=== PATIENT | male | born 1945 | race Caucasian/White ===

== ENCOUNTER 2023-07-27 04:28 | Inpatient (IN) | payer MEDICARE ==
[2023-07-27] VITALS (11 sets, daily range): BP systolic 136–180; BP diastolic 70–99; PULSE 55–75; RESP 14–25; TEMP 97.8–98.5
[~2023-07-27] VITALS: Ht 182.9 cm; Wt 99.8 kg
[2023-07-27] MEDS ORDERED: NITROGLYCERIN 0.4MG TABLET SL SL PRN (05:15)
[2023-07-27 05:45] LABS: BASOPHILS % 0.6 % (0.0-2.0); EOSINOPHILS % 1.8 % (0.0-5.0); HEMATOCRIT. 40.7 % (42.0-52.0); HEMOGLOBIN. 14.1 g/dL (14.0-18.0); LYMPHOCYTES % 15.6 % (20.0-50.0); MEAN CORPUSCULAR HEMOGLOBIN 31.6 pg (28.0-32.0); MEAN CORPUSCULAR HGB CONC 34.8 g/dL (31.0-37.0); MEAN CORPUSCULAR VOLUME 90.8 fL (80.0-94.0); MEAN PLATELET VOLUME 9.4 fl (7.4-10.4); MONOCYTES % 4.4 % (2.0-8.0); NEUTROPHILS % 77.6 % (40.0-76.0); PLATELET 207 x1000/uL (130-400); RED BLOOD CELL COUNT 4.48 mill/uL (4.7-6.1); RED CELL DISTRIBUTION WIDTH 13.3 % (11.6-14.6); WHITE BLOOD COUNT 7.3 x1000/uL (4.5-11.0)
[2023-07-27 05:58] LABS: CHLORIDE 104 mEq/L (98-107); INR 0.9; PARTIAL THROMBOPLASTIN TIME 26.8 sec (23.4-31.0); POTASSIUM 4.2 mEq/L (3.5-5.1); PROTHROMBIN TIME 10.3 sec (9.6-11.0); SODIUM 138 mEq/L (136-145)
[2023-07-27] MEDS: ASPIRIN 81MG TABLET PO ONE (05:58)
[2023-07-27 05:59] LABS: CARBON DIOXIDE 23 mEq/L (21-32)
[2023-07-27 06:00] LABS: CALCIUM 10.2 mg/dL (8.7-10.4)
[2023-07-27 06:04] LABS: CREATININE 1.9 mg/dL (0.6-1.3); GLUCOSE 224 mg/dL (70-105); UREA NITROGEN BLOOD 29 mg/dL (9-23)
[2023-07-27 06:27] LABS: TROPONIN I HIGH SENSITIVITY 796 ng/L (3.0-53)
[2023-07-27] MEDS: HYDRALAZINE 20MG/ML VIAL IV ONE (06:47)
[2023-07-27] MEDS ORDERED: HEPARIN 25,000 UNITS PREMIX 250 ML IV ONE (07:00)
[2023-07-27] MEDS ORDERED: HEPARIN 5000 UNITS/ML VIAL IV ONE (07:00)
[2023-07-27] MEDS ORDERED: HEPARIN 60 UNITS/KG BOLUS IV SCH (07:30)
[2023-07-27] MEDS: HEPARIN 25,000 UNITS PREMIX 250 ML IV SCH (08:08)
[2023-07-27] MEDS: HEPARIN 60 UNITS/KG BOLUS IV SCH (08:14)
[2023-07-27 08:40] LABS: TROPONIN I HIGH SENSITIVITY 2030 ng/L (3.0-53)
[2023-07-27] MEDS ORDERED: DOCUSATE SODIUM 100MG CAPSULE PO PRN (08:45)
[2023-07-27] MEDS ORDERED: IPRATROPIUM/ALBUTEROL 0.5-3(2.5)MG/3ML NEB HHN PRN (08:45)
[2023-07-27] MEDS ORDERED: GUAIFENESIN 200MG/10ML SUGAR FREE UDC PO PRN (08:45)
[2023-07-27] MEDS ORDERED: ACETAMINOPHEN 325MG TABLET PO PRN ×2 (08:45)
[2023-07-27] MEDS: METOPROLOL TARTRATE 25MG TABLET PO SCH (09:05)
[2023-07-27] MEDS: ASPIRIN 81MG EC TABLET PO SCH (09:05)
[2023-07-27] MEDS: PANTOPRAZOLE 40MG DR TABLET PO SCH (09:05)
[2023-07-27 10:31] LABS: CLARITY URINE CLOUDY (CLEAR); COLOR URINE YELLOW (YELLOW); GLUCOSE URINE NEGATIVE (NEGATIVE); KETONES URINE NEGATIVE (NEGATIVE); LEUKOCYTE ESTERASE URINE 2+ (NEGATIVE); NITRITE URINE NEGATIVE (NEGATIVE); OCCULT BLOOD URINE 1+ (NEGATIVE); PH URINE 5.5 (4.5-8.0); PROTEIN URINE 2+ (NEGATIVE); SPECIFIC GRAVITY URINE 1.017 (1.005-1.030)
[2023-07-27] MEDS ORDERED: AMIODARONE HCL 900 MG in DEXT 5% WATER 482 ML IV PRN (11:00)
[2023-07-27 11:05] LABS: SQUAMOUS EPITHELIAL CELL URINE FEW /lpf (RARE/1+)
[2023-07-27 11:06] LABS: RBC URINE 0-2 /hpf (0-2)
[2023-07-27 11:07] LABS: BACTERIA URINE 4+; WBC URINE 25-50 /hpf (0-2)
[2023-07-27] MEDS: AMIODARONE 150MG/100ML 100 ML IV NR (11:12)
[2023-07-27 11:23] LABS: *AMPHETAMINES SCREEN URINE NEGATIVE (NEGATIVE); *BARBITURATES SCREEN URINE NEGATIVE (NEGATIVE); *BENZODIAZEPINES SCREEN URINE NEGATIVE (NEGATIVE); *COCAINE SCREEN URINE NEGATIVE (NEGATIVE); METHADONE URINE SCREEN NEGATIVE (NEGATIVE)
[2023-07-27 11:24] LABS: CANNABINOID URINE SCREEN NEGATIVE (NEGATIVE); ECSTASY MDMA SCREEN URINE NEGATIVE (NEGATIVE); OPIATES URINE SCREEN NEGATIVE (NEGATIVE); PHENCYCLIDINE URINE SCREEN NEGATIVE (NEGATIVE)
[2023-07-27] MEDS: SODIUM CHLORIDE 0.9% 1,000 ML IV SCH (11:34)
[2023-07-27] MEDS: CEFTRIAXONE 1GM/50ML 50 ML IV SCH (12:33)
[2023-07-27 12:34] LABS: LACTIC ACID 2.2 mmol/L (0.4-2.0)
[2023-07-27 12:36] LABS: TROPONIN I HIGH SENSITIVITY 9422 ng/L (3.0-53)
[2023-07-27] MEDS: BLOOD SUGAR DIAGNOSTIC STRIP TEST SCH (13:05)
[2023-07-27] MEDS: INSULIN LISPRO 100 UNITS/ML SUBCUT SCH (13:34)
[2023-07-27] MEDS ORDERED: HEPARIN BOLUS PRN aPTT 30-44 IV (14:00)
[2023-07-27] MEDS ORDERED: HEPARIN BOLUS PRN aPTT <30 IV (14:00)
[2023-07-27] MEDS: AMIODARONE HCL 900 MG in DEXT 5% WATER 482 ML IV PRN (14:39)
[2023-07-27] MEDS ORDERED: NITR100C11 PO (15:11)
[2023-07-27] MEDS ORDERED: ATOR-2 PO (15:11)
[2023-07-27] MEDS ORDERED: METF-416 PO (15:11)
[2023-07-27] MEDS ORDERED: METO100T16 PO (15:11)
[2023-07-27] MEDS ORDERED: LISI20TA31 PO (15:11)
[2023-07-27] MEDS: AMLODIPINE 10MG TABLET PO SCH (15:58)
[2023-07-27 16:57] LABS: PARTIAL THROMBOPLASTIN TIME 65.8 sec (23.4-31.0); PROTHROMBIN TIME 11.2 sec (9.6-11.0)
[2023-07-27] MEDS: ONDANSETRON HCL 4MG/2ML INJ IV PRN (19:09)
[2023-07-27 20:28] LABS: POTASSIUM 5.2 mEq/L (3.5-5.1)
[2023-07-27 20:30] LABS: CALCIUM 9.8 mg/dL (8.7-10.4)
[2023-07-27 20:34] LABS: CREATININE 1.6 mg/dL (0.6-1.3)
[2023-07-27] MEDS: ATORVASTATIN CALCIUM 40MG TABLET PO SCH (21:21)
[2023-07-28] VITALS (30 sets, daily range): BP systolic 107–178; BP diastolic 55–132; PULSE 51–88; RESP 13–28; TEMP 97.9–98.2
[2023-07-28 01:00] LABS: TROPONIN I HIGH SENSITIVITY 22662 ng/L (3.0-53)
[2023-07-28 06:26] LABS: BASOPHILS % 0.5 % (0.0-2.0); EOSINOPHILS % 0.7 % (0.0-5.0); HEMATOCRIT. 41.6 % (42.0-52.0); HEMOGLOBIN. 13.9 g/dL (14.0-18.0); LYMPHOCYTES % 14.1 % (20.0-50.0); MEAN CORPUSCULAR HEMOGLOBIN 31.4 pg (28.0-32.0); MEAN CORPUSCULAR HGB CONC 33.4 g/dL (31.0-37.0); MEAN CORPUSCULAR VOLUME 93.9 fL (80.0-94.0); MEAN PLATELET VOLUME 9.4 fl (7.4-10.4); MONOCYTES % 7.4 % (2.0-8.0); NEUTROPHILS % 77.3 % (40.0-76.0); PLATELET 190 x1000/uL (130-400); RED BLOOD CELL COUNT 4.44 mill/uL (4.7-6.1); RED CELL DISTRIBUTION WIDTH 13.3 % (11.6-14.6); WHITE BLOOD COUNT 10.1 x1000/uL (4.5-11.0)
[2023-07-28 06:32] LABS: POTASSIUM 5.1 mEq/L (3.5-5.1)
[2023-07-28 06:33] LABS: CALCIUM 9.8 mg/dL (8.7-10.4)
[2023-07-28 06:38] LABS: CREATININE 1.6 mg/dL (0.6-1.3)
[2023-07-28 06:40] LABS: T4 FREE 1.25 ng/dL (0.89-1.76)
[2023-07-28 06:41] LABS: THYROID STIMULATING HORMONE 0.91 uIU/mL (0.55-4.78)
[2023-07-28] MEDS: CLONIDINE 0.1MG TABLET PO PRN (07:29)
[2023-07-28] MEDS ORDERED: DIPHENHYDRAMINE 50MG/ML VIAL ONE (08:06)
[2023-07-28] MEDS ORDERED: VERAPAMIL HCL 2.5 MG/1 ML 2ML VIAL IV ONE (08:06)
[2023-07-28] MEDS ORDERED: HEPARIN 1000 UNITS/ML 10ML ONE (08:06)
[2023-07-28] MEDS ORDERED: IODIXANOL 320MG/ML 100 ML BOTTLE IV ONE (08:06)
[2023-07-28] MEDS ORDERED: LIDOCAINE HCL 1% 20ML VIAL (Pyxis) INJ ONE (08:07)
[2023-07-28 08:23] LABS: TROPONIN I HIGH SENSITIVITY 17664 ng/L (3.0-53)
[2023-07-28] MEDS ORDERED: FENTANYL CITRATE/PF 50MCG/ML 2ML VIAL ONE (08:58)
[2023-07-28] MEDS ORDERED: MIDAZOLAM HCL 2 MG/2 ML VIAL ONE (08:59)
[2023-07-28] MEDS ORDERED: ACETAMINOPHEN 325MG TABLET PO PRN (10:15)
[2023-07-28] MEDS ORDERED: ATROPINE SULFATE 1MG/10ML SYR IV PRN (11:00)
[2023-07-28] MEDS: CEFTRIAXONE 1GM/50ML 50 ML IV SCH (11:27)
[2023-07-28 14:09] LABS: TROPONIN I HIGH SENSITIVITY 13059 ng/L (3.0-53)
[2023-07-28] MEDS: PNEUMOC 13-VAL CONJ-DIP CRM/PF 0.5 ML DISP.SYRIN IM ONE (18:05)
[2023-07-29] VITALS (49 sets, daily range): BP systolic 92–171; BP diastolic 54–124; PULSE 48–84; RESP 10–31; TEMP 97.7–99.2
[2023-07-29 07:13] LABS: BASOPHILS % 0.4 % (0.0-2.0); EOSINOPHILS % 1.3 % (0.0-5.0); HEMATOCRIT. 35.5 % (42.0-52.0); LYMPHOCYTES % 17.9 % (20.0-50.0); MEAN CORPUSCULAR HEMOGLOBIN 31.5 pg (28.0-32.0); MEAN CORPUSCULAR VOLUME 92.7 fL (80.0-94.0); MONOCYTES % 10.8 % (2.0-8.0); NEUTROPHILS % 69.6 % (40.0-76.0); PLATELET 150 x1000/uL (130-400); RED BLOOD CELL COUNT 3.83 mill/uL (4.7-6.1); RED CELL DISTRIBUTION WIDTH 13.4 % (11.6-14.6); WHITE BLOOD COUNT 7.4 x1000/uL (4.5-11.0)
[2023-07-29 07:21] LABS: CHLORIDE 106 mEq/L (98-107); SODIUM 139 mEq/L (136-145)
[2023-07-29 07:22] LABS: CALCIUM 8.6 mg/dL (8.7-10.4); CARBON DIOXIDE 27 mEq/L (21-32)
[2023-07-29 07:27] LABS: CREATININE 1.6 mg/dL (0.6-1.3); GLUCOSE 132 mg/dL (70-105); UREA NITROGEN BLOOD 18 mg/dL (9-23)
[2023-07-29 07:29] LABS: CREATINE KINASE 142 IU/L (46-171); PHOSPHORUS 3.3 mg/dL (2.5-4.9)
[2023-07-29] MEDS: MAGNESIUM 2 G PREMIX 50 ML IV NR (20:15)
[2023-07-29] MEDS: AMIODARONE HCL 200 MG TABLET PO SCH (21:01)
[2023-07-30] VITALS (36 sets, daily range): BP systolic 112–192; BP diastolic 57–124; PULSE 46–72; RESP 7–28; TEMP 97.7
[2023-07-30 06:51] LABS: BASOPHILS % 0.3 % (0.0-2.0); EOSINOPHILS % 3.9 % (0.0-5.0); HEMATOCRIT 36.6 % (42.0-52.0); HEMATOCRIT. 36.6 % (42.0-52.0); HEMOGLOBIN 12.4 g/dL (14.0-18.0); HEMOGLOBIN. 12.4 g/dL (14.0-18.0); LYMPHOCYTES % 9.8 % (20.0-50.0); MEAN CORPUSCULAR HEMOGLOBIN 31.1 pg (28.0-32.0); MEAN CORPUSCULAR HGB CONC 33.7 g/dL (31.0-37.0); MEAN CORPUSCULAR VOLUME 92.3 fL (80.0-94.0); MEAN PLATELET VOLUME 9.7 fl (7.4-10.4); MONOCYTES % 7.3 % (2.0-8.0); NEUTROPHILS % 78.7 % (40.0-76.0); PLATELET 157 x1000/uL (130-400); RED BLOOD CELL COUNT 3.97 mill/uL (4.7-6.1); RED CELL DISTRIBUTION WIDTH 13.2 % (11.6-14.6); WHITE BLOOD COUNT 6.2 x1000/uL (4.5-11.0)
[2023-07-30 06:59] LABS: CHLORIDE 108 mEq/L (98-107); POTASSIUM 3.9 mEq/L (3.5-5.1); SODIUM 140 mEq/L (136-145)
[2023-07-30 07:00] LABS: CALCIUM 8.8 mg/dL (8.7-10.4); CARBON DIOXIDE 25 mEq/L (21-32)
[2023-07-30 07:05] LABS: CREATININE 1.4 mg/dL (0.6-1.3); GLUCOSE 153 mg/dL (70-105); UREA NITROGEN BLOOD 16 mg/dL (9-23)
[2023-07-30 07:07] LABS: PHOSPHORUS 2.7 mg/dL (2.5-4.9)
[2023-07-30] MEDS: AMLODIPINE 10MG TABLET PO SCH (22:01)
[2023-07-31] VITALS: BP 146/87; PULSE 70; RESP 20; TEMP 97.5
[2023-07-31] MEDS: MAGNESIUM/ALUMINUM HYDROXIDE/SIMETHICONE 30ML UDC PO PRN (00:10)
[2023-07-31 04:00] VITALS: BP 130/65; PULSE 54; RESP 19; TEMP 97.6
[2023-07-31 07:09] LABS: BASOPHILS % 0.6 % (0.0-2.0); EOSINOPHILS % 10.7 % (0.0-5.0); HEMATOCRIT 37.5 % (42.0-52.0); HEMATOCRIT. 37.5 % (42.0-52.0); LYMPHOCYTES % 13.2 % (20.0-50.0); MEAN CORPUSCULAR HEMOGLOBIN 31.2 pg (28.0-32.0); MEAN CORPUSCULAR HGB CONC 34.6 g/dL (31.0-37.0); MEAN CORPUSCULAR VOLUME 90.1 fL (80.0-94.0); MEAN PLATELET VOLUME 9.7 fl (7.4-10.4); MONOCYTES % 7.3 % (2.0-8.0); NEUTROPHILS % 68.2 % (40.0-76.0); PLATELET 195 x1000/uL (130-400); RED BLOOD CELL COUNT 4.17 mill/uL (4.7-6.1); RED CELL DISTRIBUTION WIDTH 13.1 % (11.6-14.6); WHITE BLOOD COUNT 6.6 x1000/uL (4.5-11.0)
[2023-07-31 07:15] LABS: CHLORIDE 106 mEq/L (98-107); POTASSIUM 3.5 mEq/L (3.5-5.1); SODIUM 140 mEq/L (136-145)
[2023-07-31 07:17] LABS: CALCIUM 9.2 mg/dL (8.7-10.4)
[2023-07-31 07:20] LABS: CREATININE 1.4 mg/dL (0.6-1.3)
[2023-07-31 07:21] LABS: GLUCOSE 145 mg/dL (70-105)
[2023-07-31 07:22] LABS: UREA NITROGEN BLOOD 18 mg/dL (9-23)
[2023-07-31 07:24] LABS: PHOSPHORUS 2.3 mg/dL (2.5-4.9)
[2023-07-31 07:28] LABS: CARBON DIOXIDE 24 mEq/L (21-32)
[2023-07-31 08:00] VITALS: BP 138/95; PULSE 78; RESP 21; TEMP 98.2
[2023-07-31 12:00] VITALS: BP 138/71; PULSE 64; RESP 19; TEMP 98.9
[2023-07-31 16:00] VITALS: BP 140/57; PULSE 67; RESP 19; TEMP 97.9
[2023-07-31 20:00] VITALS: BP 175/92; PULSE 68; RESP 19; TEMP 97.9
[2023-08-01] VITALS: BP 113/65; PULSE 47; RESP 15; TEMP 98
[2023-08-01 04:00] VITALS: BP 134/73; PULSE 58; RESP 20; TEMP 98.1
[2023-08-01 06:50] LABS: HEMATOCRIT. 37.2 % (42.0-52.0); MEAN CORPUSCULAR HEMOGLOBIN 31.5 pg (28.0-32.0); MEAN CORPUSCULAR HGB CONC 34.9 g/dL (31.0-37.0); MEAN CORPUSCULAR VOLUME 90.4 fL (80.0-94.0); MEAN PLATELET VOLUME 8.9 fl (7.4-10.4); PLATELET 229 x1000/uL (130-400); RED BLOOD CELL COUNT 4.12 mill/uL (4.7-6.1); RED CELL DISTRIBUTION WIDTH 13.2 % (11.6-14.6); WHITE BLOOD COUNT 7.4 x1000/uL (4.5-11.0)
[2023-08-01 06:56] LABS: DIFFERENTIAL COMMENT 1
[2023-08-01 07:10] LABS: CARBON DIOXIDE 26 mEq/L (21-32); CHLORIDE 106 mEq/L (98-107); POTASSIUM 3.2 mEq/L (3.5-5.1); SODIUM 141 mEq/L (136-145)
[2023-08-01 07:11] LABS: CALCIUM 9.2 mg/dL (8.7-10.4)
[2023-08-01 07:15] LABS: CREATININE 1.4 mg/dL (0.6-1.3)
[2023-08-01 07:16] LABS: GLUCOSE 135 mg/dL (70-105); UREA NITROGEN BLOOD 18 mg/dL (9-23)
[2023-08-01 07:18] LABS: PHOSPHORUS 2.8 mg/dL (2.5-4.9)
[2023-08-01 08:00] VITALS: BP 149/76; PULSE 69; RESP 13; TEMP 97.4
[2023-08-01] MEDS ORDERED: POTASSIUM CHLORIDE 40 MEQ in DEXT 5% WATER 230 ML IV ONE (08:00)
[2023-08-01] MEDS: FAMOTIDINE 20MG TABLET PO SCH (09:13)
[2023-08-01] MEDS: POTASSIUM CHLORIDE 20MEQ/PACKET PO SCH (09:13)
[2023-08-01] MEDS: MAGNESIUM 2 G PREMIX 50 ML IV ONE (09:33)
[2023-08-01] MEDS ORDERED: NITROGLYCERIN 0.4MG TABLET SL SL PRN (10:00)
[2023-08-01] MEDS ORDERED: ALPRAZOLAM 0.25 MG TABLET PO PRN (10:00)
[2023-08-01] MEDS: KCL 20MEQ/100ML X 2 FOR TOTAL KCL 40MEQ/200ML IV SCH (10:55)
[2023-08-01 11:51] LABS: CLARITY URINE CLEAR (CLEAR); COLOR URINE YELLOW (YELLOW); GLUCOSE URINE 1+ (NEGATIVE); KETONES URINE NEGATIVE (NEGATIVE); LEUKOCYTE ESTERASE URINE NEGATIVE (NEGATIVE); NITRITE URINE NEGATIVE (NEGATIVE); OCCULT BLOOD URINE 3+ (NEGATIVE); PH URINE 5.5 (4.5-8.0); PROTEIN URINE 2+ (NEGATIVE); SPECIFIC GRAVITY URINE 1.012 (1.005-1.030); UROBILINOGEN URINE 0.2 E.U./dL (0.2-1.0)
[2023-08-01 12:00] VITALS: BP 135/102; PULSE 57; RESP 13; TEMP 97.6
[2023-08-01 12:01] LABS: BACTERIA URINE NONE SEEN; RBC URINE 50-100 /hpf (0-2); SQUAMOUS EPITHELIAL CELL URINE RARE /lpf (RARE/1+); WBC URINE 0-2 /hpf (0-2); YEAST URINE NONE SEEN
[2023-08-01 12:51] LABS: PLATELET ESTIMATE NORMAL
[2023-08-01] MEDS: POTASSIUM CHLORIDE 20MEQ/PACKET PO ONE (13:33)
[2023-08-01] MEDS: SODIUM CHLORIDE 0.9% INJ 3ML FLUSH IVF SCH (13:34)
[2023-08-01 16:00] VITALS: BP 141/66; PULSE 69; RESP 16; TEMP 98.2
[2023-08-01 20:00] VITALS: BP 149/66; PULSE 75; RESP 19; TEMP 97.6
[2023-08-01 20:35] LABS: POTASSIUM 4.5 mEq/L (3.5-5.1)
[2023-08-01 20:37] LABS: CALCIUM 9.1 mg/dL (8.7-10.4)
[2023-08-01 20:41] LABS: CREATININE 1.4 mg/dL (0.6-1.3)
[2023-08-01] MEDS ORDERED: BISACODYL 10MG SUPP PR PRN (21:00)
[2023-08-01] MEDS: ASCORBIC ACID 500 MG TABLET PO SCH (21:29)
[2023-08-01] MEDS: ALLOPURINOL 300 MG TABLET PO SCH (21:29)
[2023-08-01] MEDS: DOCUSATE SODIUM 100MG CAPSULE PO SCH (21:29)
[2023-08-01] MEDS: CHLORHEXIDINE GLUCONATE 4% EXTERNAL USE TOP SCH (21:31)
[2023-08-01] MEDS: ACETAMINOPHEN 325MG TABLET PO PRN (23:22)
[2023-08-02] VITALS (37 sets, daily range): BP systolic 87–145; BP diastolic 36–80; PULSE 58–124; RESP 9–30; TEMP 97.5–98.6
[2023-08-02] MEDS ORDERED: CEFAZOLIN 2GM/100ML 100 ML IV NR (05:00)
[2023-08-02] MEDS ORDERED: DEL NIDO CARDIOPLEGIA 1,000 ML (CHMC) IV NR ×2 (05:00)
[2023-08-02] MEDS ORDERED: NOREPINEPHRINE 8MG/250ML PMX 250 ML IV PRN (05:00)
[2023-08-02] MEDS ORDERED: PAPAVERINE HCL 180MG in SODIUM CHLORIDE 0.9% 24ML IV PRN (05:00)
[2023-08-02] MEDS ORDERED: DOBUTAMINE 250 MG/250 ML PREMIX IV PRN (05:00)
[2023-08-02] MEDS ORDERED: DOPAMINE 400MG/250ML PREMIX 250 ML IV PRN (05:00)
[2023-08-02] MEDS ORDERED: INSULIN REGULAR (DRIP) 100 UNITS in SODIUM CHLORIDE 0.9% 99 ML IV PRN (05:00)
[2023-08-02] MEDS ORDERED: NICARDIPINE 40MG/200ML PREMIX 200 ML IV PRN (05:00)
[2023-08-02] MEDS ORDERED: EPINEPHRINE 5 MG in DEXT 5% WATER 250 ML IV PRN (05:00)
[2023-08-02] MEDS ORDERED: NITROGLYCERIN 50MG PREMIX 250 ML IV ONE (05:30)
[2023-08-02] MEDS ORDERED: HEPARIN 1000 UNITS/ML 10ML ONE ×3 (05:30→09:26)
[2023-08-02] MEDS ORDERED: SEVOFLURANE 250 ML LIQUID INH ONE (05:30)
[2023-08-02] MEDS ORDERED: ACETAMINOPHEN 500MG TABLET ONE (05:30)
[2023-08-02] MEDS ORDERED: THROMBIN (BOVINE) 5000 UNITS/VIAL TOP ONE (05:32)
[2023-08-02] MEDS ORDERED: SKIN ADHESIVE 0.7 GM EA TOP ONE (05:32)
[2023-08-02] MEDS ORDERED: POLYMYXIN B SULFATE 500000 UNITS/VIAL ONE (05:32)
[2023-08-02 05:46] LABS: DIFFERENTIAL COMMENT 1; HEMATOCRIT. 36.4 % (42.0-52.0); HEMOGLOBIN. 12.4 g/dL (14.0-18.0); MEAN CORPUSCULAR HEMOGLOBIN 30.9 pg (28.0-32.0); MEAN CORPUSCULAR HGB CONC 34.1 g/dL (31.0-37.0); MEAN CORPUSCULAR VOLUME 90.5 fL (80.0-94.0); MEAN PLATELET VOLUME 8.3 fl (7.4-10.4); PLATELET 238 x1000/uL (130-400); RED BLOOD CELL COUNT 4.02 mill/uL (4.7-6.1); RED CELL DISTRIBUTION WIDTH 13.5 % (11.6-14.6); WHITE BLOOD COUNT 6.8 x1000/uL (4.5-11.0)
[2023-08-02 05:49] LABS: CHLORIDE 108 mEq/L (98-107); POTASSIUM 4.4 mEq/L (3.5-5.1); SODIUM 141 mEq/L (136-145)
[2023-08-02 05:52] LABS: CALCIUM 9.3 mg/dL (8.7-10.4); CARBON DIOXIDE 25 mEq/L (21-32); PROTHROMBIN TIME 10.7 sec (9.6-11.0)
[2023-08-02 05:57] LABS: CREATININE 1.3 mg/dL (0.6-1.3); GLUCOSE 142 mg/dL (70-105); UREA NITROGEN BLOOD 14 mg/dL (9-23)
[2023-08-02 05:59] LABS: ALANINE AMINOTRANSFERASE 17 IU/L (10-49); ALBUMIN 3.8 g/dL (3.2-4.8); ASPARTATE AMINOTRANSFERASE 21 IU/L (<34); BILIRUBIN DIRECT 0.2 mg/dL (<=3.0)
[2023-08-02 06:00] LABS: BILIRUBIN TOTAL 0.7 mg/dL (0.1-1.0); PHOSPHORUS 2.6 mg/dL (2.5-4.9); PROTEIN TOTAL 5.9 g/dL (6.0-8.3)
[2023-08-02] MEDS: CHLORHEXIDINE GLUCONATE 4% EXTERNAL USE TOP SCH (07:08)
[2023-08-02] MEDS ORDERED: ETOMIDATE 2MG/ML 10ML VIAL IV ONE (07:12)
[2023-08-02] MEDS ORDERED: ONDANSETRON HCL 4MG/2ML INJ ONE (07:12)
[2023-08-02] MEDS ORDERED: VECURONIUM BROMIDE 10 MG/VIAL IV ONE ×4 (07:12→12:29)
[2023-08-02] MEDS ORDERED: AMINOCAPROIC ACID 250 MG/ML 20ML VIAL ONE (07:12)
[2023-08-02] MEDS ORDERED: LIDOCAINE HCL 2% 5ML SYRINGE IV ONE (07:12)
[2023-08-02] MEDS ORDERED: PROPOFOL 200MG/20ML VIAL IV ONE (07:13)
[2023-08-02] MEDS ORDERED: ESMOLOL HCL 10MG/ML 10ML VIAL IV ONE (07:15)
[2023-08-02] MEDS ORDERED: FENTANYL CITRATE/PF 50MCG/ML 5ML VIAL ONE (07:19)
[2023-08-02] MEDS ORDERED: LIDOCAINE HCL/EPINEPHRINE 1%-EPI 1:100,000 20 ML VIAL ONE (08:26)
[2023-08-02] MEDS ORDERED: MAGNESIUM SULFATE 5GM/10ML VIAL IV ONE (08:26)
[2023-08-02 08:57] LABS: PLATELET ESTIMATE NORMAL
[2023-08-02] MEDS ORDERED: POTASSIUM CHLORIDE 10MEQ IN WATER 50ML PREMIX IV ONE (09:00)
[2023-08-02] MEDS ORDERED: ALBUMIN HUMAN 25GM/100ML (25%) IV ONE (09:00)
[2023-08-02] MEDS ORDERED: [UNRECOGNIZED DRUG - OTHER] IV ONE (09:00)
[2023-08-02] MEDS ORDERED: MAGNESIUM SULFATE 3 GM in DEXT 5% WATER 100 ML IV PRN ×2 (10:45→15:45)
[2023-08-02] MEDS ORDERED: KCL 10MEQ/50ML PREMIX 150 ML IV PRN (10:45)
[2023-08-02] MEDS ORDERED: MAGNESIUM 2 G PREMIX 50 ML IV PRN ×2 (10:45→15:45)
[2023-08-02] MEDS ORDERED: MAGNESIUM 1 G PREMIX 100 ML IV PRN (10:45)
[2023-08-02] MEDS ORDERED: ESMOLOL 2500MG PREMIX 0 ML IV ONE (11:32)
[2023-08-02] MEDS ORDERED: CEFAZOLIN SODIUM 1000MG/VIAL ONE ×4 (12:30→12:31)
[2023-08-02] MEDS ORDERED: DEXMEDETOMIDINE 400 MCG/100 ML 100 ML IV ONE (12:33)
[2023-08-02] MEDS ORDERED: ALBUMIN HUMAN 12.5G/250ML (5%) IV ONE (12:33)
[2023-08-02] MEDS ORDERED: PROTAMINE SULFATE 10MG/ML VIAL 5ML IV ONE (13:45)
[2023-08-02] MEDS ORDERED: CALCIUM CHLORIDE 1GM/10ML SYR IV ONE (13:56)
[2023-08-02] MEDS ORDERED: PROPOFOL 10MG/ML 100ML 100 ML IV ONE ×2 (14:14)
[2023-08-02] MEDS: BLOOD SUGAR DIAGNOSTIC STRIP TEST SCH (15:00)
[2023-08-02] MEDS ORDERED: SODIUM CHLORIDE 0.9% 500 ML IV PRN (15:45)
[2023-08-02] MEDS ORDERED: NITROGLYCERIN 50MG PREMIX 250 ML IV PRN (15:45)
[2023-08-02] MEDS ORDERED: ACETAMINOPHEN 325MG TABLET PO PRN (15:45)
[2023-08-02] MEDS ORDERED: OXYCODONE HCL/ACETAMINOPHEN 5/325MG TABLET PO PRN (15:45)
[2023-08-02 15:54] LABS: BG CARBOXYHEMOGLOBIN 0.3 % (0.5-1.5); BG DEOXYHEMOGLOBIN 5.2 % (0.0-5.0); BG FRACTION INSPIRED OXYGEN 100; BG HCO3 ACT 25.6 mmol/L (22.0-26.0); BG METHEMOGLOBIN 0.2 % (0.0-1.5); BG OXYGEN SATURATION 94.8 % (92.0-98.5); BG OXYHEMOGLOBIN 94.3 % (94.0-97.0); BG PCO2 36.8 mmHg (35.0-45.0); BG PO2 74.8 mmHg (75.0-100.0); BG SAMPLE SITE ALINE; BG TOTAL HEMOGLOBIN 13.8 g/dL (12.0-18.0); BG VENT MODE VENT - AC
[2023-08-02 15:55] LABS: BASOPHILS % 0.4 % (0.0-2.0); EOSINOPHILS % 4.5 % (0.0-5.0); HEMOGLOBIN. 10.3 g/dL (14.0-18.0); LYMPHOCYTES % 12.6 % (20.0-50.0); MEAN CORPUSCULAR HEMOGLOBIN 30.9 pg (28.0-32.0); MEAN CORPUSCULAR HGB CONC 34.3 g/dL (31.0-37.0); MEAN CORPUSCULAR VOLUME 90.2 fL (80.0-94.0); MEAN PLATELET VOLUME 8.3 fl (7.4-10.4); NEUTROPHILS % 74.5 % (40.0-76.0); PLATELET 178 x1000/uL (130-400); RED BLOOD CELL COUNT 3.32 mill/uL (4.7-6.1); WHITE BLOOD COUNT 13.4 x1000/uL (4.5-11.0)
[2023-08-02 15:59] LABS: CHLORIDE 108 mEq/L (98-107); SODIUM 144 mEq/L (136-145)
[2023-08-02 16:00] LABS: CARBON DIOXIDE 27 mEq/L (21-32)
[2023-08-02] MEDS: AMINOCAPROIC ACID 5,000 MG in SODIUM CHLORIDE 0.9% 250 ML IV PRN (16:00)
[2023-08-02 16:01] LABS: CALCIUM 8.3 mg/dL (8.7-10.4)
[2023-08-02 16:05] LABS: CREATININE 1.3 mg/dL (0.6-1.3); GLUCOSE 150 mg/dL (70-105)
[2023-08-02 16:06] LABS: UREA NITROGEN BLOOD 15 mg/dL (9-23)
[2023-08-02 16:07] LABS: ALANINE AMINOTRANSFERASE 15 IU/L (10-49); ALBUMIN 2.9 g/dL (3.2-4.8); ASPARTATE AMINOTRANSFERASE 34 IU/L (<34)
[2023-08-02 16:08] LABS: BILIRUBIN TOTAL 0.5 mg/dL (0.1-1.0); INR 1.1; PARTIAL THROMBOPLASTIN TIME 28.2 sec (23.4-31.0); PHOSPHORUS 2.6 mg/dL (2.5-4.9); PROTEIN TOTAL 4.4 g/dL (6.0-8.3); PROTHROMBIN TIME 11.9 sec (9.6-11.0)
[2023-08-02] MEDS: DEXT 5%/0.45% NACL 1000ML 1,000 ML IV SCH (16:12)
[2023-08-02] MEDS: ALBUMIN HUMAN 12.5G/250ML (5%) IV PRN (16:12)
[2023-08-02] MEDS: DOPAMINE 400MG/250ML PREMIX 250 ML IV PRN (16:14)
[2023-08-02] MEDS ORDERED: NALOXONE HCL 0.4MG/ML VIAL IV PRN (16:15)
[2023-08-02 16:48] LABS: BG BASE EXCESS 1.3 mmol/L (-2.0-2.0); BG CARBOXYHEMOGLOBIN 0.3 % (0.5-1.5); BG DEOXYHEMOGLOBIN 3.3 % (0.0-5.0); BG FRACTION INSPIRED OXYGEN 100; BG HCO3 ACT 24.3 mmol/L (22.0-26.0); BG METHEMOGLOBIN 0.1 % (0.0-1.5); BG OXYGEN SATURATION 96.7 % (92.0-98.5); BG OXYHEMOGLOBIN 96.3 % (94.0-97.0); BG PCO2 33.2 mmHg (35.0-45.0); BG PH 7.482 (7.350-7.450); BG PO2 92.3 mmHg (75.0-100.0); BG SAMPLE SITE ALINE; BG TOTAL HEMOGLOBIN 11.9 g/dL (12.0-18.0); BG VENT MODE VENT - AC
[2023-08-02] MEDS: ALBUMIN HUMAN 12.5G/250ML (5%) IV NR ×2 (16:49→23:27)
[2023-08-02] MEDS ORDERED: CALCIUM GLUCONATE 100MG/ML 10ML VIAL IV ONE (17:00)
[2023-08-02] MEDS: MAGNESIUM HYDROXIDE 400MG/5ML 30ML UDC PO SCH (17:06)
[2023-08-02] MEDS: CALCIUM GLUCONATE IV NR (17:19)
[2023-08-02] MEDS: WATER IV NR (17:19)
[2023-08-02] MEDS: DEXT 5% IV NR (17:19)
[2023-08-02] MEDS: KCL 10MEQ/50ML PREMIX 100 ML IV PRN (17:46)
[2023-08-02] MEDS: CEFAZOLIN 1000MG PREMIX 50 ML IV SCH (17:46)
[2023-08-02] MEDS: INSULIN REGULAR (DRIP) 100 UNITS in SODIUM CHLORIDE 0.9% 99 ML IV SCH (17:46)
[2023-08-02 18:09] LABS: BG BASE EXCESS 2.4 mmol/L (-2.0-2.0); BG CARBOXYHEMOGLOBIN 0.3 % (0.5-1.5); BG DEOXYHEMOGLOBIN 3.3 % (0.0-5.0); BG FRACTION INSPIRED OXYGEN 90; BG HCO3 ACT 25.7 mmol/L (22.0-26.0); BG METHEMOGLOBIN 0.1 % (0.0-1.5); BG OXYGEN SATURATION 96.7 % (92.0-98.5); BG OXYHEMOGLOBIN 96.3 % (94.0-97.0); BG PCO2 35.1 mmHg (35.0-45.0); BG PH 7.482 (7.350-7.450); BG PO2 93.1 mmHg (75.0-100.0); BG SAMPLE SITE RIGHT RADIAL; BG TOTAL HEMOGLOBIN 12.3 g/dL (12.0-18.0); BG VENT MODE VENT - AC
[2023-08-02 18:48] LABS: BG BASE EXCESS 1.3 mmol/L (-2.0-2.0); BG CARBOXYHEMOGLOBIN 0.2 % (0.5-1.5); BG DEOXYHEMOGLOBIN 3.1 % (0.0-5.0); BG FRACTION INSPIRED OXYGEN 80; BG HCO3 ACT 24.5 mmol/L (22.0-26.0); BG METHEMOGLOBIN 0.3 % (0.0-1.5); BG OXYGEN SATURATION 96.9 % (92.0-98.5); BG OXYHEMOGLOBIN 96.4 % (94.0-97.0); BG PH 7.475 (7.350-7.450); BG PO2 95.4 mmHg (75.0-100.0); BG SAMPLE SITE ALINE; BG VENT MODE VENT - AC
[2023-08-02] MEDS: AMIODARONE 150MG/100ML 100 ML IV NR (19:42)
[2023-08-02] MEDS ORDERED: AMIODARONE HCL 50MG/ML 9ML VIAL IV SCH (19:45)
[2023-08-02 20:15] LABS: BG BASE EXCESS -0.6 mmol/L (-2.0-2.0); BG CARBOXYHEMOGLOBIN 0.3 % (0.5-1.5); BG DEOXYHEMOGLOBIN 2.3 % (0.0-5.0); BG FRACTION INSPIRED OXYGEN 70; BG HCO3 ACT 22.9 mmol/L (22.0-26.0); BG METHEMOGLOBIN 0.3 % (0.0-1.5); BG OXYGEN SATURATION 97.7 % (92.0-98.5); BG OXYHEMOGLOBIN 97.1 % (94.0-97.0); BG PCO2 34.5 mmHg (35.0-45.0); BG PH 7.439 (7.350-7.450); BG PO2 110.7 mmHg (75.0-100.0); BG SAMPLE SITE ALINE; BG TOTAL HEMOGLOBIN 15.1 g/dL (12.0-18.0); BG VENT MODE VENT - AC
[2023-08-02] MEDS: AMIODARONE HCL 900 MG in DEXT 5% WATER 500 ML IV SCH (20:51)
[2023-08-02] MEDS: DOCUSATE SODIUM 100MG CAPSULE PO SCH (21:00)
[2023-08-02 21:25] LABS: BASOPHILS % 0.3 % (0.0-2.0); EOSINOPHILS % 0.7 % (0.0-5.0); HEMATOCRIT. 32.3 % (42.0-52.0); HEMOGLOBIN. 10.9 g/dL (14.0-18.0); LYMPHOCYTES % 8.8 % (20.0-50.0); MEAN CORPUSCULAR HEMOGLOBIN 30.6 pg (28.0-32.0); MEAN CORPUSCULAR HGB CONC 33.7 g/dL (31.0-37.0); MEAN CORPUSCULAR VOLUME 90.9 fL (80.0-94.0); MEAN PLATELET VOLUME 8.3 fl (7.4-10.4); MONOCYTES % 7.7 % (2.0-8.0); NEUTROPHILS % 82.5 % (40.0-76.0); PLATELET 213 x1000/uL (130-400); RED BLOOD CELL COUNT 3.55 mill/uL (4.7-6.1); RED CELL DISTRIBUTION WIDTH 13.3 % (11.6-14.6); WHITE BLOOD COUNT 13.3 x1000/uL (4.5-11.0)
[2023-08-02 21:31] LABS: CHLORIDE 109 mEq/L (98-107); POTASSIUM 3.2 mEq/L (3.5-5.1); SODIUM 142 mEq/L (136-145)
[2023-08-02 21:32] LABS: CALCIUM 8.6 mg/dL (8.7-10.4); CARBON DIOXIDE 23 mEq/L (21-32)
[2023-08-02 21:37] LABS: CREATININE 1.6 mg/dL (0.6-1.3); GLUCOSE 153 mg/dL (70-105); UREA NITROGEN BLOOD 16 mg/dL (9-23)
[2023-08-02 21:38] LABS: BG BASE EXCESS -1.9 mmol/L (-2.0-2.0); BG CARBOXYHEMOGLOBIN 0.3 % (0.5-1.5); BG FRACTION INSPIRED OXYGEN 55; BG HCO3 ACT 21.6 mmol/L (22.0-26.0); BG METHEMOGLOBIN 0.4 % (0.0-1.5); BG OXYHEMOGLOBIN 96.3 % (94.0-97.0); BG PCO2 32.8 mmHg (35.0-45.0); BG PH 7.437 (7.350-7.450); BG SAMPLE SITE ALINE; BG TOTAL HEMOGLOBIN 11.4 g/dL (12.0-18.0); BG VENT MODE VENT - AC
[2023-08-02 21:39] LABS: PHOSPHORUS 1.7 mg/dL (2.5-4.9)
[2023-08-02] MEDS: KCL 10MEQ/50ML PREMIX 200 ML IV PRN (22:43)
[2023-08-02 22:46] LABS: BG BASE EXCESS -1.9 mmol/L (-2.0-2.0); BG CARBOXYHEMOGLOBIN 0.3 % (0.5-1.5); BG DEOXYHEMOGLOBIN 2.7 % (0.0-5.0); BG FRACTION INSPIRED OXYGEN 50; BG HCO3 ACT 22.5 mmol/L (22.0-26.0); BG METHEMOGLOBIN 0.4 % (0.0-1.5); BG OXYGEN SATURATION 97.3 % (92.0-98.5); BG OXYHEMOGLOBIN 96.6 % (94.0-97.0); BG PCO2 37.3 mmHg (35.0-45.0); BG PH 7.399 (7.350-7.450); BG PO2 103.2 mmHg (75.0-100.0); BG SAMPLE SITE ALINE; BG TOTAL HEMOGLOBIN 13.7 g/dL (12.0-18.0); BG VENT MODE VENT - AC
[2023-08-03] VITALS (101 sets, daily range): BP systolic 99–157; BP diastolic 46–127; PULSE 60–126; RESP 11–40; TEMP 97.8–100.4; O2SAT 92–100
[2023-08-03 00:07] LABS: BG BASE EXCESS -4.3 mmol/L (-2.0-2.0); BG DEOXYHEMOGLOBIN 3.4 % (0.0-5.0); BG FRACTION INSPIRED OXYGEN 40; BG HCO3 ACT 19.7 mmol/L (22.0-26.0); BG METHEMOGLOBIN 0.6 % (0.0-1.5); BG OXYGEN SATURATION 96.6 % (92.0-98.5); BG PCO2 33.5 mmHg (35.0-45.0); BG PH 7.387 (7.350-7.450); BG PO2 90.7 mmHg (75.0-100.0); BG SAMPLE SITE ALINE; BG TOTAL HEMOGLOBIN 15.7 g/dL (12.0-18.0); BG VENT MODE VENT - SIMV
[2023-08-03] MEDS: FUROSEMIDE 20MG/2ML VIAL IVP NR (00:45)
[2023-08-03 00:50] LABS: BG BASE EXCESS -3.8 mmol/L (-2.0-2.0); BG CARBOXYHEMOGLOBIN 0.3 % (0.5-1.5); BG FRACTION INSPIRED OXYGEN 40; BG HCO3 ACT 20.5 mmol/L (22.0-26.0); BG METHEMOGLOBIN 0.3 % (0.0-1.5); BG OXYHEMOGLOBIN 95.4 % (94.0-97.0); BG PH 7.386 (7.350-7.450); BG SAMPLE SITE ALINE; BG TOTAL HEMOGLOBIN 13.5 g/dL (12.0-18.0); BG VENT MODE VENT - CPAP
[2023-08-03] MEDS: MORPHINE SULFATE 2 MG/ML CPJ (NOT FOR IM USE) IV PRN (01:28)
[2023-08-03] MEDS: IPRATROPIUM/ALBUTEROL 0.5-3(2.5)MG/3ML NEB HHN SCH (01:51)
[2023-08-03 02:27] LABS: BG CARBOXYHEMOGLOBIN 0.3 % (0.5-1.5); BG DEOXYHEMOGLOBIN 8.5 % (0.0-5.0); BG FRACTION INSPIRED OXYGEN 80; BG HCO3 ACT 19.6 mmol/L (22.0-26.0); BG METHEMOGLOBIN 0.5 % (0.0-1.5); BG OXYGEN SATURATION 91.4 % (92.0-98.5); BG OXYHEMOGLOBIN 90.7 % (94.0-97.0); BG PCO2 48.1 mmHg (35.0-45.0); BG PH 7.228 (7.350-7.450); BG SAMPLE SITE ALINE; BG TOTAL HEMOGLOBIN 13.2 g/dL (12.0-18.0); BG VENT MODE COOL AEROSOL
[2023-08-03] MEDS: FUROSEMIDE 40MG/4ML VIAL IVP NR ×2 (02:49→11:51)
[2023-08-03] MEDS: SODIUM BICARBONATE 8.4% 1 MEQ/ML 50ML SYR IV NR ×2 (02:49→04:26)
[2023-08-03 03:44] LABS: BG BASE EXCESS -5.5 mmol/L (-2.0-2.0); BG CARBOXYHEMOGLOBIN 0.3 % (0.5-1.5); BG DEOXYHEMOGLOBIN 7.6 % (0.0-5.0); BG FRACTION INSPIRED OXYGEN 80; BG HCO3 ACT 21.8 mmol/L (22.0-26.0); BG METHEMOGLOBIN 0.4 % (0.0-1.5); BG OXYGEN SATURATION 92.3 % (92.0-98.5); BG OXYHEMOGLOBIN 91.7 % (94.0-97.0); BG PCO2 49.7 mmHg (35.0-45.0); BG SAMPLE SITE ALINE; BG VENT MODE COOL AEROSOL
[2023-08-03 05:01] LABS: HEMATOCRIT. 30.3 % (42.0-52.0); HEMOGLOBIN. 10.2 g/dL (14.0-18.0); MEAN CORPUSCULAR HEMOGLOBIN 30.8 pg (28.0-32.0); MEAN CORPUSCULAR HGB CONC 33.7 g/dL (31.0-37.0); MEAN CORPUSCULAR VOLUME 91.5 fL (80.0-94.0); MEAN PLATELET VOLUME 8.4 fl (7.4-10.4); PLATELET 177 x1000/uL (130-400); RED BLOOD CELL COUNT 3.31 mill/uL (4.7-6.1); RED CELL DISTRIBUTION WIDTH 13.2 % (11.6-14.6); WHITE BLOOD COUNT 12.3 x1000/uL (4.5-11.0)
[2023-08-03 05:05] LABS: DIFFERENTIAL COMMENT 1
[2023-08-03 05:16] LABS: CHLORIDE 108 mEq/L (98-107); POTASSIUM 4.3 mEq/L (3.5-5.1); SODIUM 146 mEq/L (136-145)
[2023-08-03 05:17] LABS: CALCIUM 9.1 mg/dL (8.7-10.4); CARBON DIOXIDE 29 mEq/L (21-32)
[2023-08-03 05:22] LABS: CREATININE 1.8 mg/dL (0.6-1.3); GLUCOSE 89 mg/dL (70-105)
[2023-08-03 05:23] LABS: UREA NITROGEN BLOOD 18 mg/dL (9-23)
[2023-08-03 05:24] LABS: ALANINE AMINOTRANSFERASE 10 IU/L (10-49); ALBUMIN 3.1 g/dL (3.2-4.8); ASPARTATE AMINOTRANSFERASE 41 IU/L (<34)
[2023-08-03 05:25] LABS: BILIRUBIN DIRECT 0.2 mg/dL (<=3.0); BILIRUBIN TOTAL 0.3 mg/dL (0.1-1.0); PHOSPHORUS 3.4 mg/dL (2.5-4.9); PROTEIN TOTAL 4.8 g/dL (6.0-8.3)
[2023-08-03] MEDS: DESMOPRESSIN ACETATE IV NR (05:41)
[2023-08-03] MEDS: SODIUM CHLORIDE 0.9% IV NR (05:41)
[2023-08-03 05:50] LABS: PLATELET ESTIMATE NORMAL
[2023-08-03 05:51] LABS: OVALOCYTES 2+
[2023-08-03 06:05] LABS: BG BASE EXCESS -0.2 mmol/L (-2.0-2.0); BG CARBOXYHEMOGLOBIN 0.3 % (0.5-1.5); BG DEOXYHEMOGLOBIN 4.6 % (0.0-5.0); BG FRACTION INSPIRED OXYGEN 80; BG HCO3 ACT 25.2 mmol/L (22.0-26.0); BG METHEMOGLOBIN 0.6 % (0.0-1.5); BG OXYGEN SATURATION 95.4 % (92.0-98.5); BG OXYHEMOGLOBIN 94.5 % (94.0-97.0); BG PCO2 43.3 mmHg (35.0-45.0); BG PH 7.383 (7.350-7.450); BG PO2 77.2 mmHg (75.0-100.0); BG SAMPLE SITE ALINE; BG TOTAL HEMOGLOBIN 20.8 g/dL (12.0-18.0); BG VENT MODE COOL AEROSOL
[2023-08-03] MEDS: EPINEPHRINE 5 MG in SODIUM CHLORIDE 0.9% 245 ML IV PRN (06:55)
[2023-08-03] MEDS: MAGNESIUM 1 G PREMIX 100 ML IV PRN ×2 (07:32→23:01)
[2023-08-03] MEDS: VASOPRESSIN 20 UNIT in SODIUM CHLORIDE 0.9% 99 ML IV PRN (08:04)
[2023-08-03] MEDS ORDERED: VASOPRESSIN 20 UNIT in SODIUM CHLORIDE 0.9% 99 ML IV PRN (08:15)
[2023-08-03] MEDS ORDERED: MAGNESIUM SULFATE 3 GM in DEXT 5% WATER 100 ML IV PRN ×2 (08:45→22:30)
[2023-08-03] MEDS ORDERED: MAGNESIUM 1 G PREMIX 100 ML IV PRN (08:45)
[2023-08-03] MEDS ORDERED: MAGNESIUM 2 G PREMIX 50 ML IV PRN ×2 (08:45→22:30)
[2023-08-03 09:29] LABS: HEMATOCRIT. 31.2 % (42.0-52.0); HEMOGLOBIN. 10.4 g/dL (14.0-18.0); MEAN CORPUSCULAR HEMOGLOBIN 30.5 pg (28.0-32.0); MEAN CORPUSCULAR HGB CONC 33.5 g/dL (31.0-37.0); MEAN PLATELET VOLUME 8.4 fl (7.4-10.4); PLATELET 180 x1000/uL (130-400); RED BLOOD CELL COUNT 3.43 mill/uL (4.7-6.1); RED CELL DISTRIBUTION WIDTH 13.1 % (11.6-14.6); WHITE BLOOD COUNT 12.9 x1000/uL (4.5-11.0)
[2023-08-03 09:37] LABS: DIFFERENTIAL COMMENT 1
[2023-08-03 09:43] LABS: CHLORIDE 107 mEq/L (98-107); SODIUM 143 mEq/L (136-145)
[2023-08-03 09:44] LABS: CALCIUM 9.2 mg/dL (8.7-10.4); CARBON DIOXIDE 26 mEq/L (21-32)
[2023-08-03 09:49] LABS: CREATININE 1.9 mg/dL (0.6-1.3); GLUCOSE 138 mg/dL (70-105); UREA NITROGEN BLOOD 19 mg/dL (9-23)
[2023-08-03] MEDS: FAMOTIDINE 20MG/2ML VIAL IV SCH (10:23)
[2023-08-03 11:48] LABS: PLATELET ESTIMATE NORMAL
[2023-08-03] MEDS: ASPIRIN 81MG EC TABLET PO SCH (16:41)
[2023-08-03] MEDS: METOPROLOL SUCCINATE 25MG ER TABLET PO SCH (17:29)
[2023-08-03] MEDS ORDERED: BLOOD SUGAR DIAGNOSTIC STRIP TEST SCH ×2 (18:00→20:00)
[2023-08-03 18:25] LABS: HEMATOCRIT 28.9 % (42.0-52.0); HEMOGLOBIN 9.9 g/dL (14.0-18.0); MEAN CORPUSCULAR HEMOGLOBIN 30.9 pg (28.0-32.0); MEAN CORPUSCULAR HGB CONC 34.3 g/dL (31.0-37.0); MEAN CORPUSCULAR VOLUME 90.1 fL (80.0-94.0); PLATELET 161 x1000/uL (130-400); RED CELL DISTRIBUTION WIDTH 13.7 % (11.6-14.6); WHITE BLOOD COUNT 13.2 x1000/uL (4.5-11.0)
[2023-08-03 18:33] LABS: POTASSIUM 4.1 mEq/L (3.5-5.1)
[2023-08-03 18:34] LABS: CALCIUM 8.9 mg/dL (8.7-10.4)
[2023-08-03] MEDS ORDERED: EPINEPHRINE 5 MG in SODIUM CHLORIDE 0.9% 245 ML IV PRN (20:00)
[2023-08-03] MEDS: LACTULOSE 20G/30ML UDC PO SCH (21:10)
[2023-08-03] MEDS: ATORVASTATIN CALCIUM 20MG TABLET PO SCH (21:11)
[2023-08-03] MEDS: BLOOD SUGAR DIAGNOSTIC STRIP TEST SCH (21:23)
[2023-08-03] MEDS: INSULIN REGULAR 100U/100ML PMX 100 ML IV SCH (22:12)
[2023-08-03] MEDS ORDERED: KCL 10MEQ/50ML PREMIX 200 ML IV PRN (22:30)
[2023-08-03] MEDS ORDERED: KCL 10MEQ/50ML PREMIX 150 ML IV PRN (22:30)
[2023-08-03] MEDS: AMIODARONE HCL 200 MG TABLET PO SCH (23:54)
[2023-08-04] VITALS (86 sets, daily range): BP systolic 78–156; BP diastolic 37–139; PULSE 59–103; RESP 13–29; TEMP 98.1–99.1; O2SAT 94–98
[2023-08-04] MEDS: DEXTROSE 50% WATER 50ML SYRINGE IV PRN (00:21)
[2023-08-04] MEDS: OXYCODONE HCL/ACETAMINOPHEN 5/325MG TABLET PO PRN (00:47)
[2023-08-04 05:48] LABS: HEMATOCRIT 25.7 % (42.0-52.0); HEMOGLOBIN 8.8 g/dL (14.0-18.0); MEAN CORPUSCULAR HEMOGLOBIN 31.2 pg (28.0-32.0); MEAN CORPUSCULAR HGB CONC 34.2 g/dL (31.0-37.0); MEAN CORPUSCULAR VOLUME 91.4 fL (80.0-94.0); PLATELET 126 x1000/uL (130-400); RED BLOOD CELL COUNT 2.81 mill/uL (4.7-6.1); RED CELL DISTRIBUTION WIDTH 13.4 % (11.6-14.6)
[2023-08-04 05:59] LABS: CARBON DIOXIDE 30 mEq/L (21-32); CHLORIDE 103 mEq/L (98-107); SODIUM 142 mEq/L (136-145)
[2023-08-04 06:00] LABS: CALCIUM 8.8 mg/dL (8.7-10.4)
[2023-08-04 06:05] LABS: CREATININE 2.1 mg/dL (0.6-1.3); GLUCOSE 74 mg/dL (70-105); UREA NITROGEN BLOOD 24 mg/dL (9-23)
[2023-08-04 06:07] LABS: PHOSPHORUS 3.2 mg/dL (2.5-4.9)
[2023-08-04] MEDS: BLOOD SUGAR DIAGNOSTIC STRIP TEST SCH (07:30)
[2023-08-04] MEDS ORDERED: DEXTROSE 50% WATER 50ML SYRINGE IV PRN (07:30)
[2023-08-04] MEDS: INSULIN LISPRO 100 UNITS/ML SUBCUT SCH (08:02)
[2023-08-04] MEDS: KCL 10MEQ/50ML PREMIX 100 ML IV PRN (08:06)
[2023-08-04] MEDS: ONDANSETRON HCL 4MG/2ML INJ IV PRN (08:18)
[2023-08-04] MEDS: CEFTRIAXONE 1GM/50ML 50 ML IV SCH (08:25)
[2023-08-04 10:16] LABS: HEMOGLOBIN. 9.5 g/dL (14.0-18.0); MEAN CORPUSCULAR HEMOGLOBIN 30.2 pg (28.0-32.0); MEAN CORPUSCULAR HGB CONC 32.6 g/dL (31.0-37.0); MEAN CORPUSCULAR VOLUME 92.8 fL (80.0-94.0); MEAN PLATELET VOLUME 9.1 fl (7.4-10.4); PLATELET 155 x1000/uL (130-400); RED BLOOD CELL COUNT 3.13 mill/uL (4.7-6.1); WHITE BLOOD COUNT 11.9 x1000/uL (4.5-11.0)
[2023-08-04 10:24] LABS: DIFFERENTIAL COMMENT 1
[2023-08-04 10:31] LABS: CHLORIDE 99 mEq/L (98-107); POTASSIUM 5.8 mEq/L (3.5-5.1); SODIUM 136 mEq/L (136-145)
[2023-08-04 10:32] LABS: CARBON DIOXIDE 28 mEq/L (21-32)
[2023-08-04 10:38] LABS: CREATININE 2.3 mg/dL (0.6-1.3); UREA NITROGEN BLOOD 25 mg/dL (9-23)
[2023-08-04 10:43] LABS: GLUCOSE 323 mg/dL (70-105)
[2023-08-04 11:00] LABS: PLATELET ESTIMATE NORMAL
[2023-08-04] MEDS ORDERED: FUROSEMIDE 40MG/4ML VIAL IVP NR (13:00)
[2023-08-04] MEDS: MIDODRINE HCL 5MG TABLET PO SCH (13:02)
[2023-08-04] MEDS: SODIUM CHLORIDE 0.9% 500 ML IV ONE (14:52)
[2023-08-04] MEDS: FUROSEMIDE 40MG/4ML VIAL IVP NR (14:53)
[2023-08-04] MEDS ORDERED: ASPIRIN 81MG EC TABLET PO SCH (17:30)
[2023-08-04] MEDS: IRON SUCROSE COMPLEX 100 MG/5 ML ML IV SCH (18:31)
[2023-08-04] MEDS ORDERED: ATORVASTATIN CALCIUM 40MG TABLET PO SCH (21:00)
[2023-08-04] MEDS: ATORVASTATIN CALCIUM 20MG TABLET PO SCH (22:35)
[2023-08-05] VITALS (22 sets, daily range): BP systolic 113–167; BP diastolic 66–119; PULSE 68–103; RESP 15–32; TEMP 97.7–99; O2SAT 95–97
[2023-08-05 06:23] LABS: BASOPHILS % 0.3 % (0.0-2.0); EOSINOPHILS % 2.8 % (0.0-5.0); HEMOGLOBIN. 9.4 g/dL (14.0-18.0); LYMPHOCYTES % 10.2 % (20.0-50.0); MEAN CORPUSCULAR HEMOGLOBIN 31.4 pg (28.0-32.0); MEAN CORPUSCULAR HGB CONC 33.6 g/dL (31.0-37.0); MEAN CORPUSCULAR VOLUME 93.5 fL (80.0-94.0); MEAN PLATELET VOLUME 9.7 fl (7.4-10.4); MONOCYTES % 9.1 % (2.0-8.0); NEUTROPHILS % 77.6 % (40.0-76.0); PLATELET 152 x1000/uL (130-400); RED CELL DISTRIBUTION WIDTH 13.4 % (11.6-14.6); WHITE BLOOD COUNT 10.5 x1000/uL (4.5-11.0)
[2023-08-05 06:35] LABS: CARBON DIOXIDE 31 mEq/L (21-32); CHLORIDE 102 mEq/L (98-107); POTASSIUM 4.9 mEq/L (3.5-5.1); SODIUM 140 mEq/L (136-145)
[2023-08-05 06:36] LABS: CALCIUM 9.8 mg/dL (8.7-10.4)
[2023-08-05 06:41] LABS: CREATININE 2.2 mg/dL (0.6-1.3); UREA NITROGEN BLOOD 30 mg/dL (9-23)
[2023-08-05] MEDS ORDERED: LIDOCAINE HCL 1% 10 MG/ML 10ML VIAL ONE (07:00)
[2023-08-05 07:31] LABS: GLUCOSE 157 mg/dL (70-105)
[2023-08-05] MEDS: ASPIRIN 81MG EC TABLET PO SCH (08:27)
[2023-08-05] MEDS ORDERED: EPOETIN ALFA 4000UNITS/ML VIAL SUBCUT SCH (21:00)
[2023-08-05] MEDS: INSULIN GLARGINE 100 UNITS/ML SUBCUT SCH (23:02)
[2023-08-06] VITALS (10 sets, daily range): BP systolic 95–146; BP diastolic 73–93; PULSE 76–99; RESP 19–23; TEMP 97.8–98.8; O2SAT 99
[2023-08-06 08:17] LABS: POTASSIUM 4.4 mEq/L (3.5-5.1)
[2023-08-06 08:23] LABS: BASOPHILS % 0.3 % (0.0-2.0); EOSINOPHILS % 5.4 % (0.0-5.0); HEMATOCRIT. 26.3 % (42.0-52.0); HEMOGLOBIN. 8.7 g/dL (14.0-18.0); LYMPHOCYTES % 16.6 % (20.0-50.0); MEAN CORPUSCULAR HEMOGLOBIN 30.8 pg (28.0-32.0); MEAN CORPUSCULAR HGB CONC 33.2 g/dL (31.0-37.0); MEAN CORPUSCULAR VOLUME 92.6 fL (80.0-94.0); MEAN PLATELET VOLUME 9.5 fl (7.4-10.4); MONOCYTES % 9.8 % (2.0-8.0); NEUTROPHILS % 67.9 % (40.0-76.0); PLATELET 172 x1000/uL (130-400); RED BLOOD CELL COUNT 2.84 mill/uL (4.7-6.1); RED CELL DISTRIBUTION WIDTH 13.5 % (11.6-14.6); WHITE BLOOD COUNT 7.8 x1000/uL (4.5-11.0)
[2023-08-06] MEDS ORDERED: FUROSEMIDE 40MG/4ML VIAL IVP NR (21:15)
[2023-08-07] VITALS (7 sets, daily range): BP systolic 110–173; BP diastolic 74–96; PULSE 71–104; RESP 18–23; TEMP 96.8–98.3; O2SAT 98
[2023-08-07 09:11] LABS: HEMATOCRIT 29.1 % (42.0-52.0); HEMOGLOBIN 9.4 g/dL (14.0-18.0); MEAN CORPUSCULAR HEMOGLOBIN 30.5 pg (28.0-32.0); MEAN CORPUSCULAR HGB CONC 32.4 g/dL (31.0-37.0); MEAN CORPUSCULAR VOLUME 94.1 fL (80.0-94.0); PLATELET 244 x1000/uL (130-400); RED BLOOD CELL COUNT 3.09 mill/uL (4.7-6.1); RED CELL DISTRIBUTION WIDTH 13.5 % (11.6-14.6); WHITE BLOOD COUNT 8.4 x1000/uL (4.5-11.0)
[2023-08-07 09:22] LABS: POTASSIUM 4.8 mEq/L (3.5-5.1)
[2023-08-07 09:23] LABS: CALCIUM 9.9 mg/dL (8.7-10.4)
[2023-08-07 09:28] LABS: CREATININE 1.8 mg/dL (0.6-1.3)
[2023-08-07] MEDS: TAMSULOSIN HCL 0.4MG SR CAPSULE PO SCH (21:34)
[2023-08-08] VITALS (7 sets, daily range): BP systolic 102–176; BP diastolic 70–104; PULSE 63–96; RESP 19–29; TEMP 97.7–98.3
[2023-08-08 06:38] LABS: POTASSIUM 4.3 mEq/L (3.5-5.1)
[2023-08-08 06:39] LABS: CALCIUM 8.8 mg/dL (8.7-10.4)
[2023-08-08 06:44] LABS: CREATININE 1.8 mg/dL (0.6-1.3)
[2023-08-08 06:46] LABS: PHOSPHORUS 2.8 mg/dL (2.5-4.9)
[2023-08-09] VITALS (9 sets, daily range): BP systolic 129–162; BP diastolic 67–91; PULSE 64–80; RESP 18–26; TEMP 97.4–98.5
[2023-08-09 06:52] LABS: POTASSIUM 4.1 mEq/L (3.5-5.1)
[2023-08-09 06:53] LABS: CALCIUM 8.9 mg/dL (8.7-10.4)
[2023-08-09 06:58] LABS: CREATININE 1.6 mg/dL (0.6-1.3)
[2023-08-09 07:16] LABS: BASOPHILS % 0.6 % (0.0-2.0); HEMATOCRIT. 26.1 % (42.0-52.0); HEMOGLOBIN. 8.7 g/dL (14.0-18.0); LYMPHOCYTES % 18.5 % (20.0-50.0); MEAN CORPUSCULAR HEMOGLOBIN 31.2 pg (28.0-32.0); MEAN CORPUSCULAR HGB CONC 33.3 g/dL (31.0-37.0); MEAN CORPUSCULAR VOLUME 93.6 fL (80.0-94.0); MEAN PLATELET VOLUME 8.3 fl (7.4-10.4); MONOCYTES % 8.4 % (2.0-8.0); NEUTROPHILS % 64.5 % (40.0-76.0); PLATELET 229 x1000/uL (130-400); RED BLOOD CELL COUNT 2.79 mill/uL (4.7-6.1); RED CELL DISTRIBUTION WIDTH 13.5 % (11.6-14.6)
[2023-08-09] MEDS: FAMOTIDINE 20MG TABLET PO SCH (08:24)
[2023-08-10] VITALS (8 sets, daily range): BP systolic 136–163; BP diastolic 67–100; PULSE 63–98; RESP 17–29; TEMP 97.2–98.2
[2023-08-10 07:53] LABS: HEMOGLOBIN 9.6 g/dL (14.0-18.0); MEAN CORPUSCULAR HEMOGLOBIN 31.1 pg (28.0-32.0); MEAN CORPUSCULAR HGB CONC 33.2 g/dL (31.0-37.0); MEAN CORPUSCULAR VOLUME 93.7 fL (80.0-94.0); PLATELET 298 x1000/uL (130-400); RED BLOOD CELL COUNT 3.09 mill/uL (4.7-6.1); RED CELL DISTRIBUTION WIDTH 13.6 % (11.6-14.6); WHITE BLOOD COUNT 8.2 x1000/uL (4.5-11.0)
[2023-08-10 07:58] LABS: POTASSIUM 4.2 mEq/L (3.5-5.1)
[2023-08-10 08:00] LABS: CALCIUM 8.8 mg/dL (8.7-10.4)
[2023-08-10 08:04] LABS: CREATININE 1.5 mg/dL (0.6-1.3)
[2023-08-10] MEDS: AMLODIPINE 5MG TABLET PO SCH (13:35)
[2023-08-10] MEDS: METOPROLOL SUCCINATE 25MG ER TABLET PO SCH (16:52)
[2023-08-11] VITALS (7 sets, daily range): BP systolic 113–155; BP diastolic 77–124; PULSE 84–97; RESP 13–31; TEMP 97.6–98.7
[2023-08-11 06:49] LABS: POTASSIUM 4.3 mEq/L (3.5-5.1)
[2023-08-11 06:50] LABS: CALCIUM 8.3 mg/dL (8.7-10.4)
[2023-08-11 06:55] LABS: CREATININE 1.6 mg/dL (0.6-1.3)
[2023-08-11 07:14] LABS: MEAN CORPUSCULAR HEMOGLOBIN 31.4 pg (28.0-32.0); MEAN CORPUSCULAR HGB CONC 33.2 g/dL (31.0-37.0); MEAN CORPUSCULAR VOLUME 94.5 fL (80.0-94.0); PLATELET 159 x1000/uL (130-400); RED BLOOD CELL COUNT 2.86 mill/uL (4.7-6.1); RED CELL DISTRIBUTION WIDTH 13.2 % (11.6-14.6); WHITE BLOOD COUNT 6.3 x1000/uL (4.5-11.0)
[2023-08-11] MEDS: DUTASTERIDE 0.5MG CAPSULE PO SCH (11:52)
[2023-08-12] VITALS: BP 135/86; PULSE 82; RESP 20; TEMP 96.7
[2023-08-12 04:00] VITALS: BP 143/63; PULSE 58; RESP 17; TEMP 97.1
[2023-08-12 07:23] LABS: HEMATOCRIT. 27.8 % (42.0-52.0); HEMOGLOBIN. 9.2 g/dL (14.0-18.0); MEAN CORPUSCULAR HEMOGLOBIN 31.3 pg (28.0-32.0); MEAN CORPUSCULAR HGB CONC 33.3 g/dL (31.0-37.0); MEAN CORPUSCULAR VOLUME 94.1 fL (80.0-94.0); RED BLOOD CELL COUNT 2.95 mill/uL (4.7-6.1); RED CELL DISTRIBUTION WIDTH 13.8 % (11.6-14.6)
[2023-08-12 07:26] LABS: POTASSIUM 3.9 mEq/L (3.5-5.1)
[2023-08-12 07:27] LABS: CALCIUM 8.4 mg/dL (8.7-10.4)
[2023-08-12 07:32] LABS: CREATININE 1.7 mg/dL (0.6-1.3)
[2023-08-12 08:00] VITALS: BP 118/72; PULSE 75; RESP 18; TEMP 98
[2023-08-12 08:08] LABS: DIFFERENTIAL COMMENT 1
[2023-08-12 12:00] VITALS: BP 154/88; PULSE 73; RESP 20; TEMP 97.7
[2023-08-12] MEDS ORDERED: DUTA0.5C2 PO (12:57)
[2023-08-12] MEDS ORDERED: TAMS-11 PO (12:57)
[2023-08-12] MEDS ORDERED: METO-396 PO (12:57)
[2023-08-12] MEDS ORDERED: ATOR20TA PO (12:57)
[2023-08-12] MEDS ORDERED: ASPI-1406 PO (12:57)
[2023-08-12] MEDS ORDERED: AMLO5TAB88 PO (12:57)
[2023-08-12 15:36] VITALS: BP 154/88; PULSE 68; TEMP 98.2; O2SAT 93
[2023-08-12 16:00] VITALS: BP 187/84; PULSE 73; RESP 22; TEMP 98.6
[2023-08-12 17:47] LABS: PLATELET 242 x1000/uL (130-400); PLATELET ESTIMATE NORMAL
== END 2023-08-12 17:32 | DRG 233 ==
LOC: ER 04:28 → CVICU 07:59 → EDBEDREQ 08:03 → EDBEDREQTM 08:03 → EDBEDREQSVC 08:03 → 3WST 07-30 15:26 → CVICU 08-02 08:51 → 3WST 08-05 17:42
PROVIDERS: ADMIT Internal Medicine; ATTEND Internal Medicine
PROC: 4A023N7 Measurement of Cardiac Sampling and Pressure, Left Heart, Percutaneous Approach (ICD-10-PCS; 2023-07-28)
PROC: B211YZZ Fluoroscopy of Multiple Coronary Arteries using Other Contrast (ICD-10-PCS; 2023-07-28)
PROC: 02100Z9 Bypass Coronary Artery, One Artery from Left Internal Mammary, Open Approach (ICD-10-PCS; principal; 2023-08-02)
PROC: 021209W Bypass Coronary Artery, Three Arteries from Aorta with Autologous Venous Tissue, Open Approach (ICD-10-PCS; 2023-08-02)
PROC: 06BQ4ZZ Excision of Left Saphenous Vein, Percutaneous Endoscopic Approach (ICD-10-PCS; 2023-08-02)
PROC: 5A1221Z Performance of Cardiac Output, Continuous (ICD-10-PCS; 2023-08-02)
PROC: B24BZZ4 Ultrasonography of Heart with Aorta, Transesophageal (ICD-10-PCS; 2023-08-02)
PROC: 02HV33Z Insertion of Infusion Device into Superior Vena Cava, Percutaneous Approach (ICD-10-PCS; 2023-08-05)
PROC: B548ZZA Ultrasonography of Superior Vena Cava, Guidance (ICD-10-PCS; 2023-08-05)
DX: I21.4 Non-ST elevation (NSTEMI) myocardial infarction (principal); A41.59 Other Gram-negative sepsis; I50.21 Acute systolic (congestive) heart failure; J96.01 Acute respiratory failure with hypoxia; J96.02 Acute respiratory failure with hypercapnia; I13.0 Hypertensive heart and chronic kidney disease with heart failure and stage 1 through stage 4 chronic kidney disease, or unspecified chronic kidney disease; N17.9 Acute kidney failure, unspecified; N39.0 Urinary tract infection, site not specified; I47.19 Other supraventricular tachycardia; E87.0 Hyperosmolality and hypernatremia; Q43.8 Other specified congenital malformations of intestine; E78.00 Pure hypercholesterolemia, unspecified; N18.9 Chronic kidney disease, unspecified; E11.22 Type 2 diabetes mellitus with diabetic chronic kidney disease; Z20.822 Contact with and (suspected) exposure to COVID-19; I25.10 Atherosclerotic heart disease of native coronary artery without angina pectoris; N20.0 Calculus of kidney; E87.5 Hyperkalemia; E83.42 Hypomagnesemia; R53.81 Other malaise; N40.0 Benign prostatic hyperplasia without lower urinary tract symptoms; R26.9 Unspecified abnormalities of gait and mobility; I16.0 Hypertensive urgency; E11.649 Type 2 diabetes mellitus with hypoglycemia without coma; B96.89 Other specified bacterial agents as the cause of diseases classified elsewhere; E66.9 Obesity, unspecified; E83.39 Other disorders of phosphorus metabolism; Z68.29 Body mass index [BMI] 29.0-29.9, adult; E83.41 Hypermagnesemia; E87.6 Hypokalemia; E88.09 Other disorders of plasma-protein metabolism, not elsewhere classified; I48.0 Paroxysmal atrial fibrillation; Z87.442 Personal history of urinary calculi; Z79.82 Long term (current) use of aspirin; Z79.899 Other long term (current) drug therapy; Z87.891 Personal history of nicotine dependence; Z82.49 Family history of ischemic heart disease and other diseases of the circulatory system; Z83.3 Family history of diabetes mellitus
CPT/HCPCS: 36415; 36573; 36600; 71045; 71250; 76770; 80048; 80053; 80061; 80076; 80305; 81003; 82375; 82550; 82805; 82962; 83036; 83605; 83735; 83880; 84100; 84132; 84145; 84439; 84443; 84484; 85025; 85027; 85347; 85379; 85384; 86850; 86900; 86920; 87070; 87426; 90670; 93005; 93306; 93458; 93880; 93970; 94640; 97110; 97116; 97162; 97166; 97530; 97535; 99291; C1725; C1729; C1751; C1758; C1769; C1887; C1893; J0282; J0360; J0461; J0610; J0690; J0696; J1200; J1265; J1644; J1815; J1940; J2250; J2270; J2370; J2405; J2597; J2704; J2720; J3010; J3475; J3480; J3490; J7050; J7060; L3908; P9041; P9047; Q9957; Q9967; A4315

== ENCOUNTER 2024-01-13 01:42 | Inpatient (IN) | payer MEDICAID ==
[~2024-01-13] VITALS: Ht 172.7 cm; Wt 88.0 kg
[~2024-01-13 01:42] MED LIST: AMLO5TAB88 PO; ASPI-1406 PO; ATOR20TA PO; DUTA0.5C2 PO; LISI20TA31 PO; METF-416 PO; METO-396 PO; TAMS-11 PO
[2024-01-13 01:54] VITALS: O2SAT 100
[2024-01-13 03:01] LABS: BASOPHILS % 0.7 % (0.0-2.0); EOSINOPHILS % 4.6 % (0.0-5.0); HEMATOCRIT. 39.7 % (42.0-52.0); LYMPHOCYTES % 19.3 % (20.0-50.0); MEAN CORPUSCULAR HEMOGLOBIN 30.8 pg (28.0-32.0); MEAN CORPUSCULAR HGB CONC 32.7 g/dL (31.0-37.0); MEAN CORPUSCULAR VOLUME 94.1 fL (80.0-94.0); MEAN PLATELET VOLUME 8.8 fl (7.4-10.4); MONOCYTES % 11.8 % (2.0-8.0); NEUTROPHILS % 63.6 % (40.0-76.0); PLATELET 151 x1000/uL (130-400); RED BLOOD CELL COUNT 4.21 mill/uL (4.7-6.1); RED CELL DISTRIBUTION WIDTH 16.4 % (11.6-14.6)
[2024-01-13 03:15] LABS: POTASSIUM 4.1 mEq/L (3.5-5.1)
[2024-01-13 03:16] LABS: CALCIUM 10.6 mg/dL (8.7-10.4)
[2024-01-13 03:21] LABS: CREATININE 2.3 mg/dL (0.6-1.3)
[2024-01-13] MEDS ORDERED: CLONIDINE 0.1MG TABLET PO PRN (04:00)
[2024-01-13] MEDS ORDERED: DEXTROSE 50% WATER 50ML SYRINGE IV PRN (04:00)
[2024-01-13] MEDS ORDERED: ACETAMINOPHEN 325MG TABLET PO PRN ×2 (04:00)
[2024-01-13] MEDS ORDERED: IPRATROPIUM/ALBUTEROL 0.5-3(2.5)MG/3ML NEB HHN PRN (04:00)
[2024-01-13] MEDS ORDERED: ONDANSETRON HCL 4MG/2ML INJ IV PRN (04:00)
[2024-01-13] MEDS ORDERED: HYDROCODONE/ACETAMINOPHEN 5/325MG TABLET PO PRN (04:00)
[2024-01-13] MEDS ORDERED: MAGNESIUM/ALUMINUM HYDROXIDE/SIMETHICONE 30ML UDC PO PRN (04:00)
[2024-01-13 07:13] LABS: TROPONIN I HIGH SENSITIVITY 30 ng/L (3.0-53)
[2024-01-13 07:14] LABS: CREATINE KINASE 65 IU/L (46-171); PHOSPHORUS 3.3 mg/dL (2.5-4.9)
[2024-01-13] MEDS: INSULIN LISPRO 100 UNITS/ML SUBCUT SCH ×2 (08:29→10:25)
[2024-01-13] MEDS: AMIODARONE 200MG TABLET PO SCH (09:58)
[2024-01-13] MEDS: METOPROLOL TARTRATE 25MG TABLET PO SCH (09:59)
[2024-01-13] MEDS: LISINOPRIL 20MG TABLET PO SCH (09:59)
[2024-01-13] MEDS: AMLODIPINE 5MG TABLET PO SCH (09:59)
[2024-01-13] MEDS: ASPIRIN 81MG EC TABLET PO SCH (09:59)
[2024-01-13 10:00] VITALS: BP 139/55; PULSE 92; RESP 16; TEMP 37.05852; O2SAT 100
[2024-01-13] MEDS: BLOOD SUGAR DIAGNOSTIC STRIP TEST SCH (10:05)
[2024-01-13] MEDS: FUROSEMIDE 40MG/4ML VIAL IV SCH (10:20)
[2024-01-13] MEDS: DUTASTERIDE 0.5MG CAPSULE PO SCH (10:20)
[2024-01-13] MEDS: ENOXAPARIN 30MG/0.3ML SYR SUBCUT SCH (10:20)
[2024-01-13] MEDS: INSULIN GLARGINE 100 UNITS/ML SUBCUT SCH (10:26)
[2024-01-13] MEDS ORDERED: TAMSULOSIN HCL 0.4MG SR CAPSULE PO SCH (21:00)
[2024-01-13] MEDS ORDERED: ATORVASTATIN CALCIUM 20MG TABLET PO SCH (21:00)
== END 2024-01-13 16:30 | disposition left against medical advice (07) | DRG 291 ==
LOC: ER 01:42 → 5WST 04:04
PROVIDERS: ADMIT Internal Medicine; ATTEND Internal Medicine
DX: I13.0 Hypertensive heart and chronic kidney disease with heart failure and stage 1 through stage 4 chronic kidney disease, or unspecified chronic kidney disease (principal); I50.23 Acute on chronic systolic (congestive) heart failure; I48.92 Unspecified atrial flutter; N18.4 Chronic kidney disease, stage 4 (severe); E11.22 Type 2 diabetes mellitus with diabetic chronic kidney disease; I44.30 Unspecified atrioventricular block; I48.0 Paroxysmal atrial fibrillation; E78.5 Hyperlipidemia, unspecified; I25.10 Atherosclerotic heart disease of native coronary artery without angina pectoris; Z53.29 Procedure and treatment not carried out because of patient's decision for other reasons; D64.9 Anemia, unspecified; N40.0 Benign prostatic hyperplasia without lower urinary tract symptoms; Z63.4 Disappearance and death of family member; Z79.82 Long term (current) use of aspirin; Z95.1 Presence of aortocoronary bypass graft; I25.2 Old myocardial infarction; Z79.899 Other long term (current) drug therapy; Z87.442 Personal history of urinary calculi; Z83.3 Family history of diabetes mellitus; Z82.49 Family history of ischemic heart disease and other diseases of the circulatory system; Z79.4 Long term (current) use of insulin; Z87.891 Personal history of nicotine dependence; Z79.84 Long term (current) use of oral hypoglycemic drugs
CPT/HCPCS: 36415; 71045; 80048; 82550; 83036; 83735; 83880; 84100; 84484; 85025; 93005; 99285; J1650; J1815; J1940

== ENCOUNTER 2024-04-13 11:15 | Emergency (ER) | payer MEDICAID, MEDICARE ==
[~2024-04-13] VITALS: Ht 182.9 cm; Wt 98.0 kg
[~2024-04-13 11:15] MED LIST changes: +ACET-2708 MT; +AMI2 PO; -AMLO5TAB88 PO; +ATOR-388 MT; -ATOR20TA PO; +CARV3.1242 MT; +DOCU250C14 GT; -DUTA0.5C2 PO; +FURO-151 MT; +LOSA100T33 MT; +POTA-205 MT; -TAMS-11 PO
[2024-04-13 11:19] VITALS: O2SAT 100
[2024-04-13 11:35] VITALS: BP 137/65; PULSE 92; RESP 16; TEMP 36.5; O2SAT 99
== END 2024-04-13 15:50 | disposition home or self-care (01) ==
LOC: ER 11:15
DX: Z76.0 Encounter for issue of repeat prescription (principal); E11.9 Type 2 diabetes mellitus without complications; I10 Essential (primary) hypertension; E78.00 Pure hypercholesterolemia, unspecified; Z79.899 Other long term (current) drug therapy; Z79.82 Long term (current) use of aspirin
CPT/HCPCS: 99281

== ENCOUNTER 2024-09-28 19:45 | Inpatient (IN) | payer MEDICAID, MEDICARE ==
[~2024-09-28] VITALS: Ht 190.5 cm; Wt 95.3 kg
[2024-09-28 19:54] VITALS: O2SAT 97
[2024-09-28] MEDS: ACETAMINOPHEN 500MG TABLET PO ONE (23:55)
[2024-09-29] VITALS (7 sets, daily range): BP systolic 85–112; BP diastolic 45–60; PULSE 65–94; RESP 2–20; TEMP 36.3–36.8; O2SAT 94–99
[2024-09-29] LABS: HEMATOCRIT. 45.1 % (42.0-52.0); HEMOGLOBIN. 14.8 g/dL (14.0-18.0); MEAN PLATELET VOLUME 9.0 fl (7.4-10.4); PLATELET 317 x1000/uL (130-400); RED BLOOD CELL COUNT 4.95 mill/uL (4.7-6.1); RED CELL DISTRIBUTION WIDTH 13.3 % (11.6-14.6)
[2024-09-29 00:20] LABS: TROPONIN I HIGH SENSITIVITY 470 ng/L (3.0-53)
[2024-09-29 00:21] LABS: CREATININE 7.4 mg/dL (0.6-1.3)
[2024-09-29] MEDS: CEFTRIAXONE 1GM/50ML 50 ML IV ONE (00:48)
[2024-09-29] MEDS: SODIUM CHLORIDE 0.9% 1,000 ML IV ONE (00:51)
[2024-09-29 00:52] LABS: ASPARTATE AMINOTRANSFERASE 237 IU/L (<34); BILIRUBIN DIRECT 0.8 mg/dL (<=3.0); BILIRUBIN TOTAL 1.7 mg/dL (0.1-1.0); PROTEIN TOTAL 6.2 g/dL (6.0-8.3)
[2024-09-29 00:58] LABS: UREA NITROGEN BLOOD 159 mg/dL (9-23)
[2024-09-29] MEDS: METRONIDAZOLE 500 MG PREMIX 100 ML IV ONE (01:02)
[2024-09-29 01:53] LABS: INR 1.1
[2024-09-29 02:22] LABS: TROPONIN I HIGH SENSITIVITY 379 ng/L (3.0-53)
[2024-09-29] MEDS ORDERED: ACETAMINOPHEN 325MG TABLET PO PRN (03:00)
[2024-09-29] MEDS: DEXT 5%/0.45% NACL 1000ML 1,000 ML IV SCH ×2 (03:54→04:32)
[2024-09-29] MEDS ORDERED: HYDROCODONE/ACETAMINOPHEN 10/325MG TABLET PO PRN (04:30)
[2024-09-29] MEDS ORDERED: NALOXONE HCL 0.4MG/ML VIAL IV PRN (04:45)
[2024-09-29] MEDS: BLOOD SUGAR DIAGNOSTIC STRIP TEST SCH (06:45)
[2024-09-29 08:47] LABS: BAND% 4.0 % (1.0-6.0); LYMPHOCYTES % MANUAL 2.0 % (20.0-50.0); MONOCYTES % MANUAL 5.0 % (2.0-8.0); NEUTROPHILS % MANUAL 89.0 % (45.0-75.0); PLATELET ESTIMATE NORMAL
[2024-09-29] MEDS: ONDANSETRON HCL 4MG/2ML INJ IV PRN (08:49)
[2024-09-29] MEDS: METRONIDAZOLE 500 MG PREMIX 100 ML IV SCH (10:05)
[2024-09-29] MEDS: INSULIN LISPRO 100 UNITS/ML SUBCUT SCH ×2 (10:08→16:30)
[2024-09-29 14:17] LABS: CREATININE 5.8 mg/dL (0.6-1.3); UREA NITROGEN BLOOD 132.0 mg/dL (9-23)
[2024-09-29] MEDS ORDERED: SODIUM CHLORIDE 0.9% 500 ML IV NR (16:00)
[2024-09-29 19:10] LABS: HEPATITIS C AB NON REACTIVE (Neg) (Negative)
[2024-09-29 19:42] LABS: CLARITY URINE CLEAR (CLEAR); COLOR URINE YELLOW (YELLOW); GLUCOSE URINE 2+ (NEGATIVE); KETONES URINE NEGATIVE (NEGATIVE); LEUKOCYTE ESTERASE URINE NEGATIVE (NEGATIVE); NITRITE URINE NEGATIVE (NEGATIVE); OCCULT BLOOD URINE 1+ (NEGATIVE); PH URINE 5.0 (4.5-8.0); PROTEIN URINE TRACE (NEGATIVE); SPECIFIC GRAVITY URINE 1.017 (1.005-1.030); UROBILINOGEN URINE 0.2 E.U./dL (0.2-1.0)
[2024-09-29 20:18] LABS: *AMPHETAMINES SCREEN URINE NEGATIVE (NEGATIVE); *BARBITURATES SCREEN URINE NEGATIVE (NEGATIVE); *BENZODIAZEPINES SCREEN URINE NEGATIVE (NEGATIVE); *COCAINE SCREEN URINE NEGATIVE (NEGATIVE); WBC URINE 0-2 /hpf (0-2)
[2024-09-29 20:19] LABS: BACTERIA URINE TRACE; CANNABINOID URINE SCREEN NEGATIVE (NEGATIVE); ECSTASY MDMA SCREEN URINE NEGATIVE (NEGATIVE); METHADONE URINE SCREEN NEGATIVE (NEGATIVE); OPIATES URINE SCREEN NEGATIVE (NEGATIVE); PHENCYCLIDINE URINE SCREEN NEGATIVE (NEGATIVE); RBC URINE 0-2 /hpf (0-2); SQUAMOUS EPITHELIAL CELL URINE NONE SEEN /lpf (RARE/1+)
[2024-09-29] MEDS: INSULIN GLARGINE 100 UNITS/ML SUBCUT SCH (21:59)
[2024-09-29] MEDS: CEFTRIAXONE 1GM/50ML 50 ML IV SCH (23:24)
[2024-09-30] VITALS (14 sets, daily range): BP systolic 80–126; BP diastolic 30–74; PULSE 64–113; RESP 16–20; TEMP 36.3–37; O2SAT 96–99
[2024-09-30] MEDS: METRONIDAZOLE 500 MG PREMIX 100 ML IV SCH (06:15)
[2024-09-30 07:57] LABS: HEMATOCRIT. 39.0 % (42.0-52.0); HEMOGLOBIN. 13.0 g/dL (14.0-18.0); MEAN PLATELET VOLUME 9.4 fl (7.4-10.4); PLATELET 204 x1000/uL (130-400); RED BLOOD CELL COUNT 4.28 mill/uL (4.7-6.1); RED CELL DISTRIBUTION WIDTH 13.5 % (11.6-14.6)
[2024-09-30 08:03] LABS: CREATININE 7.4 mg/dL (0.6-1.3); UREA NITROGEN BLOOD 167 mg/dL (9-23)
[2024-09-30 08:07] LABS: PHOSPHORUS 10.1 mg/dL (2.5-4.9)
[2024-09-30] MEDS: ASPIRIN 81MG TABLET PO SCH (08:45)
[2024-09-30] MEDS: SEVELAMER CARBONATE 800 MG TABLET PO SCH (11:44)
[2024-09-30 14:54] LABS: HEPATITIS A AB IGM NEGATIVE (Negative)
[2024-09-30 14:55] LABS: HEPATITIS B CORE AB IGM NEGATIVE (Negative); HEPATITIS C AB NON REACTIVE (Neg) (Negative)
[2024-09-30 17:19] LABS: LYMPHOCYTES % MANUAL 5.0 % (20.0-50.0); MONOCYTES % MANUAL 4.0 % (2.0-8.0); NEUTROPHILS % MANUAL 91.0 % (45.0-75.0); PLATELET ESTIMATE NORMAL
[2024-09-30] MEDS: INSULIN GLARGINE 100 UNITS/ML SUBCUT SCH (21:47)
[2024-09-30] MEDS: DEXTROSE 50% WATER 50ML SYRINGE IV PRN (23:30)
[2024-10-01] VITALS: BP 118/61; PULSE 91; RESP 18; TEMP 36.6; O2SAT 97
[2024-10-01 04:00] VITALS: BP 106/63; PULSE 90; RESP 17; TEMP 37; O2SAT 100
[2024-10-01 08:00] VITALS: BP 107/59; PULSE 87; RESP 16; TEMP 36.3; O2SAT 92
[2024-10-01 12:00] VITALS: BP 122/63; PULSE 82; RESP 18; TEMP 36.3; O2SAT 94
[2024-10-01 13:57] LABS: CREATININE 4.6 mg/dL (0.6-1.3); UREA NITROGEN BLOOD 103.0 mg/dL (9-23)
[2024-10-01] MEDS: LANTHANUM CARBONATE 500MG CHEW TABLET PO SCH (14:09)
[2024-10-01 16:00] VITALS: BP 123/61; PULSE 86; RESP 21; TEMP 37; O2SAT 97
[2024-10-01 20:00] VITALS: BP 136/59; PULSE 87; RESP 18; TEMP 37.1; O2SAT 97
[2024-10-02] VITALS (15 sets, daily range): BP systolic 84–161; BP diastolic 40–103; PULSE 59–90; RESP 17–20; TEMP 35.8–37.3; O2SAT 90–99
[2024-10-02 09:04] LABS: HEMATOCRIT. 36.9 % (42.0-52.0); HEMOGLOBIN. 12.1 g/dL (14.0-18.0); MEAN PLATELET VOLUME 9.7 fl (7.4-10.4); PLATELET 137 x1000/uL (130-400); RED BLOOD CELL COUNT 4.02 mill/uL (4.7-6.1); RED CELL DISTRIBUTION WIDTH 13.9 % (11.6-14.6)
[2024-10-02 09:07] LABS: COMPLEMENT C3 93 mg/dL (82-167); COMPLEMENT C4 18 mg/dL (12-38)
[2024-10-02 09:27] LABS: CREATININE 4.5 mg/dL (0.6-1.3)
[2024-10-02 09:49] LABS: UREA NITROGEN BLOOD 101.0 mg/dL (9-23)
[2024-10-02 10:52] LABS: BAND% 2.0 % (1.0-6.0); LYMPHOCYTES % MANUAL 5.0 % (20.0-50.0); MONOCYTES % MANUAL 7.0 % (2.0-8.0); NEUTROPHILS % MANUAL 86.0 % (45.0-75.0)
[2024-10-02 10:54] LABS: PLATELET ESTIMATE NORMAL
[2024-10-02 13:11] LABS: ANTI-NUCLEAR ANTIBODIES DIRECT Negative (Negative)
[2024-10-03] VITALS: BP 176/68; PULSE 83; RESP 18; TEMP 36.9; O2SAT 90
[2024-10-03 04:00] VITALS: BP 126/66; PULSE 84; RESP 18; TEMP 36.4; O2SAT 99
[2024-10-03 08:00] VITALS: BP 138/64; PULSE 84; RESP 18; TEMP 36; O2SAT 95
[2024-10-03 12:00] VITALS: BP 130/68; PULSE 75; RESP 18; TEMP 36.7; O2SAT 98
[2024-10-03 16:00] VITALS: BP 130/68; PULSE 90; RESP 18; TEMP 36.4; O2SAT 97
[2024-10-03 17:07] LABS: ANTI-MYELOPEROXIDASE AB < 0.2 units (0.0-0.9); ANTI-PROTEINASE 3 ABS < 0.2 units (0.0-0.9)
[2024-10-03 20:00] VITALS: BP 128/70; PULSE 84; RESP 16; TEMP 36.8; O2SAT 100
[2024-10-03] MEDS: ZOLPIDEM TARTRATE 5MG TABLET PO PRN (22:49)
[2024-10-04] VITALS: BP 135/67; PULSE 79; RESP 18; TEMP 36.5; O2SAT 98
[2024-10-04 04:00] VITALS: BP 131/63; PULSE 81; RESP 18; TEMP 36.5; O2SAT 92
[2024-10-04 08:00] VITALS: BP 150/71; PULSE 84; RESP 20; TEMP 36.6; O2SAT 95
[2024-10-04 08:19] LABS: UREA NITROGEN BLOOD 51.0 mg/dL (9-23)
[2024-10-04 08:29] LABS: HEMATOCRIT. 31.2 % (42.0-52.0); HEMOGLOBIN. 10.5 g/dL (14.0-18.0); MEAN PLATELET VOLUME 9.5 fl (7.4-10.4); PLATELET 107 x1000/uL (130-400); RED BLOOD CELL COUNT 3.42 mill/uL (4.7-6.1); RED CELL DISTRIBUTION WIDTH 13.8 % (11.6-14.6)
[2024-10-04 08:53] LABS: CREATININE 2.4 mg/dL (0.6-1.3)
[2024-10-04 12:00] VITALS: BP 136/67; PULSE 78; RESP 20; TEMP 36.9; O2SAT 95
[2024-10-04 13:11] LABS: ATYPICAL P-ANCA <1:20 titer (Neg:<1:20); CYTOPLASMIC C-ANCA <1:20 titer (Neg:<1:20); PERINUCLEAR P-ANCA <1:20 titer (Neg:<1:20)
[2024-10-04 16:00] VITALS: BP 135/67; PULSE 84; RESP 20; TEMP 37.1; O2SAT 99
[2024-10-04 19:22] LABS: BAND% 8.0 % (1.0-6.0); EOSINOPHILS % MANUAL 1.0 % (0.0-5.0); LYMPHOCYTES % MANUAL 4.0 % (20.0-50.0); MONOCYTES % MANUAL 10.0 % (2.0-8.0); NEUTROPHILS % MANUAL 77.0 % (45.0-75.0); PLATELET ESTIMATE SLIGHTLY DECREASED
[2024-10-04 20:00] VITALS: BP 124/71; PULSE 90; RESP 18; TEMP 36.3; O2SAT 99
[2024-10-05] VITALS: BP 144/83; PULSE 89; RESP 18; TEMP 36.3; O2SAT 94
[2024-10-05 04:00] VITALS: BP 121/73; PULSE 89; RESP 16; TEMP 36.3; O2SAT 99
[2024-10-05 07:37] LABS: HEMATOCRIT. 30.9 % (42.0-52.0); HEMOGLOBIN. 10.5 g/dL (14.0-18.0); MEAN PLATELET VOLUME 9.6 fl (7.4-10.4); PLATELET 133 x1000/uL (130-400); RED BLOOD CELL COUNT 3.40 mill/uL (4.7-6.1); RED CELL DISTRIBUTION WIDTH 13.7 % (11.6-14.6)
[2024-10-05 07:45] LABS: CREATININE 2.2 mg/dL (0.6-1.3); UREA NITROGEN BLOOD 48.0 mg/dL (9-23)
[2024-10-05 08:00] VITALS: BP 115/65; PULSE 85; RESP 18; TEMP 36; O2SAT 99
[2024-10-05 12:00] VITALS: BP 118/64; PULSE 86; RESP 17; TEMP 36.1; O2SAT 86
[2024-10-05] MEDS: LIDOCAINE HCL 1% 10 MG/ML 10ML VIAL ONE (19:00)
[2024-10-05 20:00] VITALS: BP 139/74; PULSE 88; RESP 17; TEMP 35.6; O2SAT 99
[2024-10-06] VITALS: BP 146/74; PULSE 18; RESP 18; TEMP 36.2; O2SAT 98
[2024-10-06 04:00] VITALS: BP 117/56; PULSE 89; RESP 18; TEMP 36.6; O2SAT 98
[2024-10-06 08:00] VITALS: BP 140/75; PULSE 87; RESP 20; TEMP 36.7; O2SAT 96
[2024-10-06 12:00] VITALS: BP 123/66; PULSE 89; RESP 19; TEMP 36.7; O2SAT 98
[2024-10-06] MEDS: ACETAMINOPHEN 325MG TABLET PO PRN (13:35)
[2024-10-06 16:00] VITALS: BP 116/65; PULSE 93; RESP 18; TEMP 36.6; O2SAT 99
[2024-10-06 16:36] LABS: EOSINOPHILS % MANUAL 2.0 % (0.0-5.0); LYMPHOCYTES % MANUAL 3.0 % (20.0-50.0); MONOCYTES % MANUAL 8.0 % (2.0-8.0); NEUTROPHILS % MANUAL 87.0 % (45.0-75.0)
[2024-10-06 16:37] LABS: PLATELET ESTIMATE SLIGHTLY DECREASED
[2024-10-06 18:26] LABS: PHOSPHORUS 3.2 mg/dL (2.5-4.9)
[2024-10-06 20:00] VITALS: BP 123/69; PULSE 95; RESP 17; TEMP 36.8; O2SAT 99
[2024-10-06] MEDS: INSULIN GLARGINE 100 UNITS/ML SUBCUT SCH (22:30)
[2024-10-07] VITALS: BP 138/68; PULSE 100; RESP 19; TEMP 36.8; O2SAT 100
[2024-10-07 04:00] VITALS: BP 123/67; PULSE 85; RESP 17; TEMP 37.2; O2SAT 100
[2024-10-07 08:00] VITALS: BP 116/70; PULSE 88; RESP 20; TEMP 36.7; O2SAT 98
[2024-10-07 10:47] LABS: CREATININE 2.1 mg/dL (0.6-1.3)
[2024-10-07 10:48] LABS: UREA NITROGEN BLOOD 43.0 mg/dL (9-23)
[2024-10-07 10:49] LABS: HEMATOCRIT. 30.8 % (42.0-52.0); HEMOGLOBIN. 10.1 g/dL (14.0-18.0); MEAN PLATELET VOLUME 8.8 fl (7.4-10.4); PLATELET 204 x1000/uL (130-400); RED BLOOD CELL COUNT 3.37 mill/uL (4.7-6.1); RED CELL DISTRIBUTION WIDTH 14.1 % (11.6-14.6)
[2024-10-07] MEDS: MAGNESIUM 2 G PREMIX 50 ML IV SCH (11:46)
[2024-10-07 12:00] VITALS: BP 118/60; PULSE 80; RESP 18; TEMP 36.4; O2SAT 99
[2024-10-07 13:47] LABS: EOSINOPHILS % MANUAL 2.0 % (0.0-5.0); LYMPHOCYTES % MANUAL 4.0 % (20.0-50.0); METAMYELOCYTES % 1.0 % (0-0); MONOCYTES % MANUAL 4.0 % (2.0-8.0); NEUTROPHILS % MANUAL 89.0 % (45.0-75.0); PLATELET ESTIMATE NORMAL
[2024-10-07 16:00] VITALS: BP 144/72; PULSE 92; RESP 17; TEMP 36.3; O2SAT 98
[2024-10-07 20:00] VITALS: BP 125/61; PULSE 62; RESP 17; TEMP 36.7; O2SAT 98
[2024-10-08] VITALS: BP 147/65; PULSE 91; RESP 18; TEMP 36.6; O2SAT 100
[2024-10-08 04:00] VITALS: BP 140/72; PULSE 94; RESP 18; TEMP 36.7; O2SAT 99
[2024-10-08 08:00] VITALS: BP 139/64; PULSE 85; RESP 16; TEMP 36.6; O2SAT 99
[2024-10-08 12:00] VITALS: BP 121/58; PULSE 84; RESP 20; TEMP 36.8; O2SAT 99
[2024-10-08 16:00] VITALS: BP 132/57; PULSE 94; RESP 18; TEMP 36.4; O2SAT 98
[2024-10-08] MEDS ORDERED: NALOXONE HCL 0.4MG/ML VIAL IV PRN (20:30)
[2024-10-08] MEDS: HYDROCODONE/ACETAMINOPHEN 7.5/325MG TABLET PO PRN (21:11)
[2024-10-09] VITALS: BP 112/63; PULSE 95; RESP 18; TEMP 36.3; O2SAT 100
[2024-10-09 04:00] VITALS: BP 119/60; PULSE 92; RESP 18; TEMP 36.4; O2SAT 98
[2024-10-09 07:08] LABS: CREATININE 1.9 mg/dL (0.6-1.3)
[2024-10-09 07:10] LABS: ASPARTATE AMINOTRANSFERASE 27 IU/L (<34)
[2024-10-09 07:12] LABS: VITAMIN B12 SERUM 1227 pg/mL (211-911)
[2024-10-09 07:16] LABS: PLATELET 220 x1000/uL (130-400); RED BLOOD CELL COUNT 2.98 mill/uL (4.7-6.1); RED CELL DISTRIBUTION WIDTH 13.8 % (11.6-14.6)
[2024-10-09 07:27] LABS: UREA NITROGEN BLOOD 41 mg/dL (9-23)
[2024-10-09 07:29] LABS: BILIRUBIN TOTAL 0.5 mg/dL (0.1-1.0); PROTEIN TOTAL 4.8 g/dL (6.0-8.3)
[2024-10-09 08:00] VITALS: BP 119/63; PULSE 92; RESP 20; TEMP 36.7; O2SAT 98
[2024-10-09] MEDS: ONDANSETRON HCL 4MG/2ML INJ IV PRN (11:33)
[2024-10-09 12:00] VITALS: BP 131/66; PULSE 97; RESP 19; TEMP 36.2; O2SAT 98
[2024-10-09 16:00] VITALS: BP 122/58; PULSE 88; RESP 18; TEMP 36.2; O2SAT 97
[2024-10-09 20:00] VITALS: BP 121/59; PULSE 96; RESP 18; TEMP 36.7; O2SAT 100
[2024-10-10 04:00] VITALS: BP 128/60; PULSE 87; RESP 18; TEMP 36.3; O2SAT 100
[2024-10-10 08:00] VITALS: BP 130/67; PULSE 100; RESP 18; TEMP 36.7; O2SAT 100
[2024-10-10 12:00] VITALS: BP 146/68; PULSE 92; RESP 18; TEMP 36.4; O2SAT 100
[2024-10-10 15:00] VITALS: BP 129/71; PULSE 101; RESP 20; TEMP 36.7; O2SAT 98
[2024-10-10 20:00] VITALS: BP 148/65; PULSE 95; RESP 18; TEMP 36.7; O2SAT 100
[2024-10-11] VITALS: BP 146/73; PULSE 95; RESP 18; TEMP 36.3; O2SAT 100
[2024-10-11 04:00] VITALS: BP 129/62; PULSE 87; RESP 17; TEMP 36.7; O2SAT 100
[2024-10-11 08:00] VITALS: BP 117/65; PULSE 88; RESP 20; TEMP 36.4; O2SAT 100
[2024-10-11] MEDS: CELECOXIB 200MG CAPSULE PO SCH (11:00)
[2024-10-11 12:00] VITALS: BP 111/65; PULSE 89; RESP 20; TEMP 36.5; O2SAT 100
[2024-10-11 16:00] VITALS: BP 141/70; PULSE 91; RESP 18; TEMP 36.1; O2SAT 98
[2024-10-11 20:00] VITALS: BP 139/65; PULSE 99; RESP 18; TEMP 36.7; O2SAT 97
[2024-10-11] MEDS: LOPERAMIDE HCL 2MG CAPSULE PO PRN (21:43)
[2024-10-12] VITALS: BP 125/63; PULSE 99; RESP 17; TEMP 36.8; O2SAT 99
[2024-10-12 04:00] VITALS: BP 128/63; PULSE 84; RESP 17; TEMP 36.7; O2SAT 100
[2024-10-12 08:00] VITALS: BP 124/63; PULSE 78; RESP 20; TEMP 36.7; O2SAT 99
[2024-10-12 08:14] LABS: BASOPHILS % 1.2 % (0.0-2.0); EOSINOPHILS % 1.7 % (0.0-5.0); HEMATOCRIT. 26.7 % (42.0-52.0); HEMOGLOBIN. 8.4 g/dL (14.0-18.0); LYMPHOCYTES % 10.2 % (20.0-50.0); MONOCYTES % 6.8 % (2.0-8.0); NEUTROPHILS % 80.1 % (40.0-76.0); RED BLOOD CELL COUNT 2.84 mill/uL (4.7-6.1); RED CELL DISTRIBUTION WIDTH 14.3 % (11.6-14.6)
[2024-10-12 08:21] LABS: CREATININE 1.9 mg/dL (0.6-1.3)
[2024-10-12 08:22] LABS: UREA NITROGEN BLOOD 31 mg/dL (9-23)
[2024-10-12 08:24] LABS: PHOSPHORUS 2.9 mg/dL (2.5-4.9)
[2024-10-12 09:04] LABS: PLATELET 300 x1000/uL (130-400)
[2024-10-12 12:00] VITALS: BP 136/66; PULSE 80; RESP 20; TEMP 36.7; O2SAT 100
[2024-10-12] MEDS: SODIUM ZIRCONIUM CYCLOSILICATE 10GM/PACKET PO NR (13:59)
[2024-10-12 16:00] VITALS: BP 132/67; PULSE 93; RESP 20; TEMP 36.5; O2SAT 99
[2024-10-12] MEDS: TAMSULOSIN HCL 0.4MG SR CAPSULE PO SCH (17:47)
[2024-10-12 20:00] VITALS: BP 137/65; PULSE 88; RESP 19; TEMP 36.9; O2SAT 99
[2024-10-13] VITALS: BP 129/65; PULSE 90; RESP 20; TEMP 36.7; O2SAT 99
[2024-10-13 04:00] VITALS: BP 122/65; PULSE 87; RESP 19; TEMP 36.9; O2SAT 98
[2024-10-13 08:00] VITALS: BP 121/65; PULSE 90; RESP 18; TEMP 36.8; O2SAT 97
[2024-10-13 08:44] LABS: HEMATOCRIT. 25.8 % (42.0-52.0); HEMOGLOBIN. 8.5 g/dL (14.0-18.0); MEAN PLATELET VOLUME 7.7 fl (7.4-10.4); PLATELET 326 x1000/uL (130-400); RED BLOOD CELL COUNT 2.82 mill/uL (4.7-6.1); RED CELL DISTRIBUTION WIDTH 14.0 % (11.6-14.6)
[2024-10-13 09:02] LABS: CREATININE 1.9 mg/dL (0.6-1.3); UREA NITROGEN BLOOD 31.0 mg/dL (9-23)
[2024-10-13 12:00] VITALS: BP 123/69; PULSE 84; RESP 20; TEMP 36.7; O2SAT 100
[2024-10-13 14:41] LABS: EOSINOPHILS % MANUAL 1.0 % (0.0-5.0); LYMPHOCYTES % MANUAL 11.0 % (20.0-50.0); MONOCYTES % MANUAL 3.0 % (2.0-8.0); NEUTROPHILS % MANUAL 85.0 % (45.0-75.0); PLATELET ESTIMATE NORMAL
[2024-10-13 16:00] VITALS: BP 144/72; PULSE 87; RESP 18; TEMP 36.7; O2SAT 99
[2024-10-13] MEDS: PANTOPRAZOLE SODIUM 40 MG/VIAL IV SCH (20:29)
[2024-10-14] VITALS: BP 138/70; PULSE 86; RESP 18; TEMP 36.8; O2SAT 96
[2024-10-14] MEDS: METOCLOPRAMIDE HCL 10MG/2ML VIAL IV SCH (00:03)
[2024-10-14 04:00] VITALS: BP 129/70; PULSE 86; RESP 18; TEMP 36.3; O2SAT 97
[2024-10-14 07:59] VITALS: BP 148/73; PULSE 90; RESP 19; TEMP 36.7; O2SAT 98
[2024-10-14 12:00] VITALS: BP 127/64; PULSE 92; RESP 18; TEMP 36.7; O2SAT 98
[2024-10-14] MEDS: ENOXAPARIN 40MG/0.4ML SYR SUBCUT SCH (15:00)
[2024-10-14 16:00] VITALS: BP 107/59; PULSE 76; RESP 18; TEMP 36.6; O2SAT 96
[2024-10-14 19:28] LABS: CLARITY URINE CLEAR (CLEAR); COLOR URINE YELLOW (YELLOW); GLUCOSE URINE 3+ (NEGATIVE); KETONES URINE NEGATIVE (NEGATIVE); LEUKOCYTE ESTERASE URINE TRACE (NEGATIVE); NITRITE URINE NEGATIVE (NEGATIVE); OCCULT BLOOD URINE TRACE (NEGATIVE); PH URINE 5.5 (4.5-8.0); PROTEIN URINE 1+ (NEGATIVE); SPECIFIC GRAVITY URINE 1.020 (1.005-1.030); UROBILINOGEN URINE 0.2 E.U./dL (0.2-1.0)
[2024-10-14 19:37] LABS: BACTERIA URINE 1+; RBC URINE 0-2 /hpf (0-2); SQUAMOUS EPITHELIAL CELL URINE FEW /lpf (RARE/1+); WBC URINE 15-25 /hpf (0-2)
[2024-10-14 20:00] VITALS: BP 141/62; PULSE 93; RESP 18; TEMP 36.7; O2SAT 97
[2024-10-15] VITALS: BP 112/68; PULSE 82; RESP 18; TEMP 36.9; O2SAT 96
[2024-10-15 04:00] VITALS: BP 129/62; PULSE 88; RESP 18; TEMP 36.9; O2SAT 96
[2024-10-15 07:52] LABS: CREATININE 2.0 mg/dL (0.6-1.3); UREA NITROGEN BLOOD 29 mg/dL (9-23)
[2024-10-15 07:54] LABS: PHOSPHORUS 2.2 mg/dL (2.5-4.9)
[2024-10-15 08:00] VITALS: BP 128/59; PULSE 90; RESP 20; TEMP 36.6; O2SAT 98
[2024-10-15 08:08] LABS: BASOPHILS % 0.3 % (0.0-2.0); EOSINOPHILS % 1.5 % (0.0-5.0); HEMATOCRIT. 24.5 % (42.0-52.0); HEMOGLOBIN. 8.1 g/dL (14.0-18.0); LYMPHOCYTES % 11.0 % (20.0-50.0); MEAN PLATELET VOLUME 7.7 fl (7.4-10.4); MONOCYTES % 10.6 % (2.0-8.0); NEUTROPHILS % 76.6 % (40.0-76.0); PLATELET 347 x1000/uL (130-400); RED BLOOD CELL COUNT 2.69 mill/uL (4.7-6.1); RED CELL DISTRIBUTION WIDTH 13.9 % (11.6-14.6)
[2024-10-15 12:00] VITALS: BP 132/64; PULSE 89; RESP 20; TEMP 36.6; O2SAT 99
[2024-10-15] MEDS: SODIUM PHOSPHATE 20 MMOL in DEXT 5% WATER 243.3333 ML IV ONE (12:57)
[2024-10-15 16:00] VITALS: BP 123/57; PULSE 87; RESP 20; TEMP 36.6; O2SAT 95
[2024-10-15 20:22] VITALS: BP 115/55; PULSE 94; RESP 15; TEMP 36.6; O2SAT 97
[2024-10-16] VITALS: BP 131/59; PULSE 94; RESP 17; TEMP 37.2; O2SAT 96
[2024-10-16 04:00] VITALS: BP 124/59; PULSE 88; RESP 18; TEMP 36.7; O2SAT 98
[2024-10-16 08:00] VITALS: BP 115/58; PULSE 92; RESP 18; TEMP 36.7; O2SAT 96
[2024-10-16 08:44] LABS: BASOPHILS % 0.4 % (0.0-2.0); EOSINOPHILS % 1.9 % (0.0-5.0); HEMATOCRIT. 25.0 % (42.0-52.0); HEMOGLOBIN. 8.2 g/dL (14.0-18.0); LYMPHOCYTES % 10.7 % (20.0-50.0); MEAN PLATELET VOLUME 7.7 fl (7.4-10.4); MONOCYTES % 10.3 % (2.0-8.0); NEUTROPHILS % 76.7 % (40.0-76.0); PLATELET 338 x1000/uL (130-400); RED BLOOD CELL COUNT 2.71 mill/uL (4.7-6.1); RED CELL DISTRIBUTION WIDTH 13.7 % (11.6-14.6)
[2024-10-16 09:11] LABS: CREATININE 1.8 mg/dL (0.6-1.3)
[2024-10-16 09:12] LABS: UREA NITROGEN BLOOD 27 mg/dL (9-23)
[2024-10-16 09:14] LABS: PHOSPHORUS 3.3 mg/dL (2.5-4.9)
[2024-10-16 12:00] VITALS: BP 150/70; PULSE 91; RESP 17; TEMP 36.7; O2SAT 99
[2024-10-16 16:00] VITALS: BP 120/57; PULSE 98; RESP 18; TEMP 36.8; O2SAT 98
[2024-10-16 20:00] VITALS: BP 105/55; PULSE 97; RESP 15; TEMP 36.7; O2SAT 95
[2024-10-17] VITALS (7 sets, daily range): BP systolic 124–140; BP diastolic 57–70; PULSE 86–96; RESP 17–20; TEMP 36.4–36.7; O2SAT 95–100
[2024-10-17] MEDS: HYDROCODONE/ACETAMINOPHEN 7.5/325MG TABLET PO PRN (11:04)
[2024-10-18] VITALS: BP 126/70; PULSE 99; RESP 19; TEMP 36.6; O2SAT 97
[2024-10-18 04:00] VITALS: BP 124/78; PULSE 92; RESP 19; TEMP 36.7; O2SAT 98
[2024-10-18] MEDS: MEGESTROL ACETATE 400 MG/10 ML UDC PO SCH (08:55)
[2024-10-18 11:40] VITALS: BP 124/61; PULSE 92; RESP 16; TEMP 36.8; O2SAT 99
[2024-10-18 16:00] VITALS: BP 122/59; PULSE 100; RESP 15; TEMP 36.4; O2SAT 98
[2024-10-18 20:00] VITALS: BP 128/65; PULSE 89; RESP 18; TEMP 36.6; O2SAT 100
[2024-10-19] VITALS: BP 143/65; PULSE 87; RESP 16; TEMP 36.7; O2SAT 99
[2024-10-19 04:00] VITALS: BP 144/73; PULSE 86; RESP 16; TEMP 36.6; O2SAT 98
[2024-10-19 06:17] LABS: BASOPHILS % 0.4 % (0.0-2.0); EOSINOPHILS % 3.0 % (0.0-5.0); HEMATOCRIT. 25.4 % (42.0-52.0); HEMOGLOBIN. 8.5 g/dL (14.0-18.0); LYMPHOCYTES % 13.5 % (20.0-50.0); MEAN PLATELET VOLUME 7.0 fl (7.4-10.4); MONOCYTES % 11.4 % (2.0-8.0); NEUTROPHILS % 71.7 % (40.0-76.0); PLATELET 392 x1000/uL (130-400); RED BLOOD CELL COUNT 2.79 mill/uL (4.7-6.1); RED CELL DISTRIBUTION WIDTH 13.8 % (11.6-14.6)
[2024-10-19 06:30] LABS: CREATININE 1.7 mg/dL (0.6-1.3)
[2024-10-19 06:31] LABS: UREA NITROGEN BLOOD 27.0 mg/dL (9-23)
[2024-10-19 08:00] VITALS: BP 138/67; PULSE 82; RESP 18; TEMP 36.3; O2SAT 98
[2024-10-19 12:00] VITALS: BP 147/72; PULSE 91; RESP 19; TEMP 36.7; O2SAT 97
[2024-10-19 16:00] VITALS: BP 130/60; PULSE 91; RESP 19; TEMP 36.9; O2SAT 100
[2024-10-19 20:00] VITALS: BP 116/56; PULSE 97; RESP 15; TEMP 36.7; O2SAT 100
[2024-10-20] VITALS: BP 143/67; PULSE 92; RESP 16; TEMP 36.8; O2SAT 100
[2024-10-20 04:00] VITALS: BP 133/65; PULSE 91; RESP 16; TEMP 36.7; O2SAT 99
[2024-10-20 08:00] VITALS: BP 145/71; PULSE 96; RESP 19; TEMP 36.6; O2SAT 96
[2024-10-20 12:00] VITALS: BP 130/66; PULSE 85; RESP 18; TEMP 36.6; O2SAT 98
[2024-10-20 16:00] VITALS: BP 136/75; PULSE 96; RESP 20; TEMP 36.6; O2SAT 98
[2024-10-20 20:00] VITALS: BP 144/63; PULSE 99; RESP 18; TEMP 36.6; O2SAT 99
[2024-10-21] VITALS: BP 138/71; PULSE 92; RESP 18; TEMP 36.9; O2SAT 99
[2024-10-21 04:00] VITALS: BP 128/68; PULSE 98; RESP 17; TEMP 36.6; O2SAT 98
[2024-10-21 08:00] VITALS: BP 142/76; PULSE 98; RESP 18; TEMP 36.7; O2SAT 98
[2024-10-21 12:00] VITALS: BP 133/66; PULSE 96; RESP 18; TEMP 36.8; O2SAT 98
[2024-10-21 16:00] VITALS: BP 147/74; PULSE 98; RESP 18; TEMP 36.7; O2SAT 97
[2024-10-21 20:00] VITALS: BP 139/69; PULSE 97; RESP 17; TEMP 36.7; O2SAT 96
[2024-10-22] VITALS: BP 122/74; PULSE 98; RESP 18; TEMP 36.8; O2SAT 97
[2024-10-22 04:00] VITALS: BP 129/75; PULSE 97; RESP 19; TEMP 36.7; O2SAT 97
[2024-10-22 08:00] VITALS: BP 149/68; PULSE 95; RESP 16; TEMP 36.4; O2SAT 98
[2024-10-22 12:00] VITALS: BP 126/66; PULSE 69; RESP 20; TEMP 36.6; O2SAT 95
[2024-10-22 12:07] LABS: CREATININE 1.4 mg/dL (0.6-1.3); UREA NITROGEN BLOOD 28.0 mg/dL (9-23)
[2024-10-22 16:00] VITALS: BP 120/60; PULSE 92; RESP 16; TEMP 37.1; O2SAT 100
[2024-10-22 20:00] VITALS: BP 106/53; PULSE 100; RESP 18; TEMP 36.3; O2SAT 100
[2024-10-23] VITALS: BP 139/74; PULSE 93; RESP 18; TEMP 37.2; O2SAT 96
[2024-10-23 04:00] VITALS: BP 123/63; PULSE 96; RESP 20; TEMP 36.6; O2SAT 100
[2024-10-23 08:00] VITALS: BP 150/134; PULSE 63; RESP 16; TEMP 36.6; O2SAT 100
[2024-10-23 12:00] VITALS: BP 115/65; PULSE 96; RESP 16; TEMP 36.7; O2SAT 99
[2024-10-23 16:00] VITALS: BP 149/66; PULSE 60; RESP 20; TEMP 36.7; O2SAT 96
[2024-10-23 20:00] VITALS: BP 109/60; PULSE 94; RESP 15; TEMP 36.9; O2SAT 98
[2024-10-24] VITALS: BP 113/62; PULSE 84; RESP 16; TEMP 36.8; O2SAT 98
[2024-10-24 04:00] VITALS: BP 137/69; PULSE 88; RESP 18; TEMP 36.7; O2SAT 98
[2024-10-24 08:00] VITALS: BP 150/73; PULSE 89; RESP 18; TEMP 36.6; O2SAT 96
[2024-10-24 09:12] LABS: BASOPHILS % 0.7 % (0.0-2.0); EOSINOPHILS % 4.5 % (0.0-5.0); HEMATOCRIT. 29.0 % (42.0-52.0); HEMOGLOBIN. 8.9 g/dL (14.0-18.0); LYMPHOCYTES % 21.4 % (20.0-50.0); MEAN PLATELET VOLUME 7.0 fl (7.4-10.4); MONOCYTES % 9.2 % (2.0-8.0); NEUTROPHILS % 64.2 % (40.0-76.0); PLATELET 371 x1000/uL (130-400); RED BLOOD CELL COUNT 2.94 mill/uL (4.7-6.1); RED CELL DISTRIBUTION WIDTH 15.9 % (11.6-14.6)
[2024-10-24 12:00] VITALS: BP 111/60; PULSE 89; RESP 20; TEMP 36.6; O2SAT 99
[2024-10-24 16:00] VITALS: BP 134/66; PULSE 69; RESP 20; TEMP 36.7; O2SAT 96
[2024-10-24 20:00] VITALS: BP 131/63; PULSE 95; RESP 17; TEMP 36.8; O2SAT 96
[2024-10-24] MEDS: MELATONIN 3MG TABLET PO SCH (22:54)
[2024-10-25] VITALS: BP 128/60; PULSE 90; RESP 19; TEMP 36.3; O2SAT 96
[2024-10-25 04:00] VITALS: BP 138/72; PULSE 97; RESP 19; TEMP 36.3; O2SAT 97
[2024-10-25 08:00] VITALS: BP 150/75; PULSE 93; RESP 20; TEMP 36.7; O2SAT 97
[2024-10-25] MEDS: LIDOCAINE 5% PATCH TOP SCH (11:17)
[2024-10-25 12:00] VITALS: BP 133/70; PULSE 89; RESP 18; TEMP 36.7; O2SAT 99
[2024-10-25] MEDS: PANTOPRAZOLE 40MG DR TABLET PO SCH (12:30)
[2024-10-25] MEDS: LOSARTAN 25 MG TABLET PO SCH (14:15)
[2024-10-25 15:57] VITALS: BP 142/72; PULSE 96; RESP 17; TEMP 98.6
[2024-10-25 16:00] VITALS: BP 157/74; PULSE 85; RESP 18; TEMP 36.7; O2SAT 99
[2024-10-25] MEDS: CLONIDINE 0.1MG TABLET PO PRN (16:39)
[2024-10-25] MEDS ORDERED: MELATONIN 3MG TABLET PO SCH (21:00)
== END 2024-10-25 18:45 | DRG 871 ==
LOC: ER 19:45 → EDBEDREQ 09-29 00:29 → EDBEDREQDT 09-29 00:29 → EDBEDREQTM 09-29 00:29 → ENRESERV 09-29 00:35 → 5WST 09-29 02:00 → 8EST 10-05 18:58
PROVIDERS: ADMIT Internal Medicine; ATTEND Internal Medicine
PROC: 02HV33Z Insertion of Infusion Device into Superior Vena Cava, Percutaneous Approach (ICD-10-PCS; principal; 2024-09-30)
PROC: B548ZZA Ultrasonography of Superior Vena Cava, Guidance (ICD-10-PCS; 2024-09-30)
PROC: 5A1D70Z Performance of Urinary Filtration, Intermittent, Less than 6 Hours Per Day (ICD-10-PCS; 2024-09-30)
PROC: 5A1D70Z Performance of Urinary Filtration, Intermittent, Less than 6 Hours Per Day (ICD-10-PCS; 2024-10-02)
DX: A41.9 Sepsis, unspecified organism (principal); I21.A1 Myocardial infarction type 2; K85.90 Acute pancreatitis without necrosis or infection, unspecified; N17.0 Acute kidney failure with tubular necrosis; I50.22 Chronic systolic (congestive) heart failure; M62.82 Rhabdomyolysis; E87.20 Acidosis, unspecified; I13.0 Hypertensive heart and chronic kidney disease with heart failure and stage 1 through stage 4 chronic kidney disease, or unspecified chronic kidney disease; I47.10 Supraventricular tachycardia, unspecified; I42.0 Dilated cardiomyopathy; G82.20 Paraplegia, unspecified; E87.5 Hyperkalemia; L40.9 Psoriasis, unspecified; Z95.1 Presence of aortocoronary bypass graft; I25.10 Atherosclerotic heart disease of native coronary artery without angina pectoris; R65.20 Severe sepsis without septic shock; N18.30 Chronic kidney disease, stage 3 unspecified; E11.22 Type 2 diabetes mellitus with diabetic chronic kidney disease; E86.9 Volume depletion, unspecified; E83.39 Other disorders of phosphorus metabolism; D64.9 Anemia, unspecified; E11.42 Type 2 diabetes mellitus with diabetic polyneuropathy; E11.69 Type 2 diabetes mellitus with other specified complication; E78.00 Pure hypercholesterolemia, unspecified; E87.6 Hypokalemia; E87.8 Other disorders of electrolyte and fluid balance, not elsewhere classified; L60.3 Nail dystrophy; R29.6 Repeated falls; N26.1 Atrophy of kidney (terminal); N20.0 Calculus of kidney; M48.02 Spinal stenosis, cervical region; M48.061 Spinal stenosis, lumbar region without neurogenic claudication; R33.9 Retention of urine, unspecified; N21.0 Calculus in bladder; M17.0 Bilateral primary osteoarthritis of knee; Z88.0 Allergy status to penicillin; Z79.899 Other long term (current) drug therapy
CPT/HCPCS: 36415; 36556; 36580; 71045; 72131; 72141; 72146; 72148; 73560; 73630; 74176; 76705; 80048; 80053; 80076; 80305; 81003; 82550; 82607; 82962; 83036; 83520; 83605; 83735; 84100; 84145; 84443; 84484; 85025; 85027; 86038; 86160; 86256; 86705; 86706; 86709; 87340; 90935; 92610; 93005; 97110; 97112; 97163; 97164; 97166; 97168; 97530; 97535; 99291; A4606; C1752; C1887; J0696; J1650; J1815; J2003; J2405; J2470; J2765; J3475; J3490; J7030; J7060